=== PATIENT | female | born 1950 | race Asian ===

== ENCOUNTER 2020-04-19 17:41 | Inpatient (IN) | payer MEDICARE, MEDICAID ==
[~2020-04-19] VITALS: Ht 157.5 cm; Wt 61.2 kg
[2020-04-19 18:31] LABS: BASOPHILS % (AUTO) 0.5 % (0.0-2.0); HEMATOCRIT 37.2 % (37.0-47.0); HEMOGLOBIN 13.1 G/DL (12.0-16.0); LYMPHOCYTES % (AUTO) 22.1 % (20.0-45.0); MEAN CORPUSCULAR VOLUME 87 FL (80-99); MONOCYTES % (AUTO) 6.1 % (1.0-10.0); NEUTROPHILS % (AUTO) 71.3 % (45.0-75.0); PLATELET COUNT 240 K/UL (150-450); RED BLOOD COUNT 4.26 M/UL (4.20-5.40); WHITE BLOOD COUNT 6.9 K/UL (4.8-10.8)
[2020-04-19 18:39] LABS: CALCIUM 8.1 MG/DL (8.5-10.1); CREATININE 1.1 MG/DL (0.55-1.30); POTASSIUM 3.2 MMOL/L (3.5-5.1)
[2020-04-19 18:45] VITALS: BP 131/92
[2020-04-19 18:55] LABS: ALBUMIN/GLOBULIN RATIO 0.7 (1.0-2.7); BILIRUBIN,TOTAL 0.5 MG/DL (0.2-1.0)
[2020-04-19 20:50] VITALS: BP 149/87
--- NOTE | 2020-04-19 20:57 | History & Physical ---
History of Present Illness General Date patient seen: Apr 19, 2020 Time patient seen: 20:57 Reason for Hospitalization: Dyspnea/Respdistress Present Illness HPI 69 yoF with non significant medical hx, presented to ED for 3 days hx of worsening SOB, dyspnea, and cough, Pt was bourght in by EMS with 6L and sat at 90% Denied any CP, vomtiting, diarrhea, or fever prior Allergies: Coded Allergies: No Known Allergies (Unverified , 04/19/20) COVID-19 Screening Contact w/high risk pt: No Experienced COVID-19 symptoms?: No Medication History No Active Prescriptions or Reported Meds Patient History Healthcare decision maker Resuscitation status Advanced Directive on File Review of Systems Review of Symptoms General ROS: tiredness Psychological ROS: no depression or mood changes, no memory loss Ophthalmic ROS: no visual changes or eye irritation ENT ROS: no nasal congestion, hearing loss, dizziness Allergy and Immunology ROS: no allergic symptoms or urticaria Hematological and Lymphatic ROS: no swollen glands, unusual bleeding or bruising Endocrine ROS: no polyuria, polydipsia, weight changes, temperature intolerance Respiratory ROS: no cough, shortness of breath, or wheezing Cardiovascular ROS: no chest pain or dyspnea on exertion Gastrointestinal ROS: denies abdominal pain, bright red blood in stool. Musculoskeletal ROS: no myalgias or arthralgias Neurological ROS: no TIA or stroke symptoms Dermatological ROS: no new or changing skin lesions, rashes or pruritis Physical Exam Physical Exam General appearance: alert, cooperative, no distress, appears stated age Head: Normocephalic, without obvious abnormality, atraumatic Eyes: conjunctivae/corneas clear. PERRL, EOM's intact. Fundi benign Throat: Lips, mucosa, and tongue normal. Teeth and gums normal Neck: supple, symmetrical, trachea midline, no adenopathy, thyroid: not enlarged, symmetric, no tenderness/mass/nodules, no carotid bruit and no JVD Lungs: clear to auscultation bilaterally Heart: regular rate and rhythm, S1, S2 normal, no murmur, click, rub or gallop Abdomen: soft, non-tender. Bowel sounds normal. No masses, no organomegaly Extremities: extremities normal, atraumatic, no cyanosis or edema Pulses: 2+ and symmetric Skin: Skin color, texture, turgor normal. No rashes or lesions Neurologic: Grossly normal Last 24 Hour Vital Signs Date Time Temp Pulse Resp B/P (MAP) Pulse Ox O2 Delivery O2 Flow Rate FiO2 04/19/20 20:50 98.5 78 24 149/87 96 Nasal Cannula 6.0 04/19/20 18:51 76 18 Nasal Cannula 6.0 04/19/20 18:45 97.0 18 131/92 92 Room Air 04/19/20 17:35 97.0 76 18 131/92 (105) 92 Room Air Laboratory Tests Test 04/19/20 18:12 White Blood Count 6.9 K/UL (4.8-10.8) Red Blood Count 4.26 M/UL (4.20-5.40) Hemoglobin 13.1 G/DL (12.0-16.0) Hematocrit 37.2 % (37.0-47.0) Mean Corpuscular Volume 87 FL (80-99) Mean Corpuscular Hemoglobin 30.7 PG (27.0-31.0) Mean Corpuscular Hemoglobin Concent 35.2 G/DL (32.0-36.0) Red Cell Distribution Width 12.0 % (11.6-14.8) Platelet Count 240 K/UL (150-450) Mean Platelet Volume 6.8 FL (6.5-10.1) Neutrophils (%) (Auto) 71.3 % (45.0-75.0) Lymphocytes (%) (Auto) 22.1 % (20.0-45.0) Monocytes (%) (Auto) 6.1 % (1.0-10.0) Eosinophils (%) (Auto) 0.0 % (0.0-3.0) Basophils (%) (Auto) 0.5 % (0.0-2.0) Prothrombin Time 10.7 SEC (9.30-11.50) Prothromb Time International Ratio 1.0 (0.9-1.1) Activated Partial Thromboplast Time 34 SEC (23-33) H Sodium Level 135 MMOL/L (136-145) L Potassium Level 3.2 MMOL/L (3.5-5.1) L Chloride Level 100 MMOL/L (98-107) Carbon Dioxide Level 27 MMOL/L (21-32) Anion Gap 8 mmol/L (5-15) Blood Urea Nitrogen 16 mg/dL (7-18) Creatinine 1.1 MG/DL (0.55-1.30) Estimat Glomerular Filtration Rate 49.6 mL/min (>60) Glucose Level 109 MG/DL (74-106) H Calcium Level 8.1 MG/DL (8.5-10.1) L Ferritin 835 NG/ML (8-388) H Total Bilirubin 0.5 MG/DL (0.2-1.0) Aspartate Amino Transf (AST/SGOT) 60 U/L (15-37) H Alanine Aminotransferase (ALT/SGPT) 59 U/L (12-78) Alkaline Phosphatase 28 U/L (46-116) L Lactate Dehydrogenase 423 U/L (81-234) H C-Reactive Protein, Quantitative 7.3 mg/dL (0.00-0.90) H Pro-B-Type Natriuretic Peptide 98 pg/mL (0-125) Total Protein 7.5 G/DL (6.4-8.2) Albumin 3.0 G/DL (3.4-5.0) L Globulin 4.5 g/dL Albumin/Globulin Ratio 0.7 (1.0-2.7) L Lipase 311 U/L (73-393) Microbiology Date/Time Source Procedure Growth Status 04/19/20 18:12 Nasopharynx SARS-CoV-2 RdRp Gene Assay - Final Complete Height (Feet): 5 Height (Inches): 2.00 Weight (Pounds): 135 Assessment/Plan Status: stable, unchanged Diagnosis [place] I: 69 yo F with no PMHX admitted for covid PNA # acute resp failure 2/2 Covid pna # covid pna # High infllammatory marker # Hypokalemia - albuterol mdi - decadron start - nc - zinc - self pron - Pulm consulted, appreciate recs - replete lyte DVT loveno GI not indicated [facility] Hospital declaration X INPATIENT level of care is warranted for this patient because patient is a 89 year old with who presents with suspicion of . I have a high level of concern because . Patient is at high risk for . Plan of care/treatment include . Patient care is expected to be greater than 2 midnights. Disposition: Once the patient is stable to leave the hospital, I anticipate the patient will likely be discharged to the following environment: Estimated discharge date:- I spent 70 minutes on this patient's case, and 30 minutes was dedicated to counseling and/or care coordination. MIPS (Merit-based Incentive Payment System) Applicable CPT: 53939, 42373 CHECK ALL THAT ARE MET: Measure #5 (CHF): All ages. Prescribe SALO/ARB upon discharge for patients with left ventricular systolic dysfunction. If not, the reason is clearly documented in the medical chart. Measure #8 (CHF): All ages. Prescribe a beta ashly upon discharge for patients with left ventricular systolic dysfunction. If not, the reason is clearly documented in the medical chart. X Measure #47 Advance care plan or surrogate decision maker documented in the medical record. XMeasure #130 The provider has documented, updated, or reviewed the patients current medication list and has documented it in the patients note. X Measure #374 (All): Send report to referring provider. Measure #407(Sepsis due to MSSA bacteremia): Age 18+ Patient treated with a beta-lactam antibiotic (Nafcillin, Oxacillin or Cefazolin) as definitive therapy. MEDICAL COMPLEXITY High complexity medical decision making (need 2/3 categories) Problem - need 4 points X Acute/new problem with new plan for workup (4 points, 1 max) Acute/new problem without additional workup (3 points, 1 max) Unstable chronic problem actively being managed (2 point each, 2 max) X Stable chronic problem actively being managed (1 point each, 2 max) Self-limited/transient process (constipation, muscle ache, etc) (1 point each, 2 max) Data - need 4 points X Reviewed labs/imaging studies (1 points, 2 max) X Independent review of imaging (EKG, xrays, etc) (2 points, 2 max) Discussed case with consult/other MD/RN (2 points, 2 max) High Risk - qualify if have one of the following: Severe exacerbation of acute problem, acute mental status change, IV narcotics, monitoring drug levels (vancomycin, INR, tacrolimus etc) Chika Rose D.O. Apr 19, 2020 20:57
[2020-04-19] MEDS ORDERED: Nitroglycerin Subl 0.4mg tab SL PRN (21:00)
[2020-04-19 21:20] VITALS: BP 138/76
[2020-04-19 21:50] LABS: CHOLESTEROL 187 MG/DL (< 200); HDL CHOLESTEROL 52 MG/DL (40-60); TRIGLYCERIDES 138 MG/DL (30-150)
--- NOTE | 2020-04-19 22:05 | Emergency Room Report ---
History of Present Illness General Chief Complaint: Dyspnea/Respdistress Source: Patient Present Illness HPI 69-year-old female recently diagnosed with Covid presents with fatigue, shortness of breath for days alleviated with oxygen, severity is moderate, constant patient brought in by EMS currently on 6 L of nasal cannula Allergies: Coded Allergies: No Known Allergies (Unverified , 04/19/20) COVID-19 Screening Contact w/high risk pt: No Experienced COVID-19 symptoms?: No COVID-19 Testing performed VP DIRECTOR OF FINANCE: Yes COVID-19 Screening: Positive COVID-19 COVID-19 Testing Source: UNK Patient History Past Medical History: see triage record Reviewed Nursing Documentation: PMH: Agreed; PSxH: Agreed Nursing Documentation-PMH Past Medical History: No History, Except For Review of Systems All Other Systems: negative except mentioned in HPI Physical Exam Vital Signs Date Time Temp Pulse Resp B/P (MAP) Pulse Ox O2 Delivery O2 Flow Rate FiO2 04/19/20 17:35 97.0 76 18 131/92 (105) 92 Room Air 04/19/20 18:51 6.0 Sp02 EP Interpretation: reviewed, abnormal - Hypoxic General Appearance: alert, moderate distress, Chronically Ill Head: normocephalic, atraumatic Eyes: bilateral eye PERRL, bilateral eye EOMI ENT: uvula midline, moist mucus membranes Neck: supple, thyroid normal, supple/symm/no masses Respiratory: respiratory distress, decreased breath sounds, accessory muscle use Cardiovascular #1: normal peripheral pulses, no edema, no gallop, no murmur, tachycardia Gastrointestinal: non tender, soft, no guarding, no rebound Musculoskeletal: normal inspection Neurologic: alert, oriented x3 Psychiatric: anxious Skin: no rash, warm/dry Procedures Critical Care Time Critical Care Time Given the critical condition in which the patient arrived, the patient was immediately assessed by myself and the nurse, and cardiac monitoring initiated due to the potential for rapid decompensation of the patient's clinical condition. During the course of the patient's stay, I spent a considerable amount of time at the bedside performing serial re-evaluations of the patient's hemodynamic and clinical status because of the recognized potential threat to life or limb in this condition. I then had a chance to review not only all of the available current laboratory and radiographic studies obtained today, but I also reviewed old records available to me at the time. Additionally, any ancillary information available including dictaphone transcriber records were reviewed. Sequential vital signs were obtained. Critical Care time of 33 minutes was performed exclusive of billable procedures. Medical Decision Making Diagnostic Impression: Primary Impression: Respiratory distress Additional Impressions: COVID-19 Hypoxic ER Course 69-year-old female presents with Covid currently short of breath, requiring oxygenation, patient given 6 L nasal cannula, patient was in critical status, tachypneic short of breath improved with oxygenation, Decadron administration patient admitted to Dr. Ac Laboratory Tests Test 04/19/20 18:12 White Blood Count 6.9 K/UL (4.8-10.8) Red Blood Count 4.26 M/UL (4.20-5.40) Hemoglobin 13.1 G/DL (12.0-16.0) Hematocrit 37.2 % (37.0-47.0) Mean Corpuscular Volume 87 FL (80-99) Mean Corpuscular Hemoglobin 30.7 PG (27.0-31.0) Mean Corpuscular Hemoglobin Concent 35.2 G/DL (32.0-36.0) Red Cell Distribution Width 12.0 % (11.6-14.8) Platelet Count 240 K/UL (150-450) Mean Platelet Volume 6.8 FL (6.5-10.1) Neutrophils (%) (Auto) 71.3 % (45.0-75.0) Lymphocytes (%) (Auto) 22.1 % (20.0-45.0) Monocytes (%) (Auto) 6.1 % (1.0-10.0) Eosinophils (%) (Auto) 0.0 % (0.0-3.0) Basophils (%) (Auto) 0.5 % (0.0-2.0) Prothrombin Time 10.7 SEC (9.30-11.50) Prothrombin Time INR 1.0 (0.9-1.1) Activated Partial Thromboplast Time 34 SEC (23-33) H Sodium Level 135 MMOL/L (136-145) L Potassium Level 3.2 MMOL/L (3.5-5.1) L Chloride Level 100 MMOL/L (98-107) Carbon Dioxide Level 27 MMOL/L (21-32) Anion Gap 8 mmol/L (5-15) Blood Urea Nitrogen 16 mg/dL (7-18) Creatinine 1.1 MG/DL (0.55-1.30) Estimated Glomerular Filtration Rate 49.6 mL/min (>60) Glucose Level 109 MG/DL (74-106) H Calcium Level 8.1 MG/DL (8.5-10.1) L Magnesium Level 2.4 MG/DL (1.8-2.4) Ferritin 835 NG/ML (8-388) H Total Bilirubin 0.5 MG/DL (0.2-1.0) Aspartate Amino Transferase (AST) 60 U/L (15-37) H Alanine Aminotransferase (ALT) 59 U/L (12-78) Alkaline Phosphatase 28 U/L (46-116) L Lactate Dehydrogenase 423 U/L (81-234) H C-Reactive Protein, Quantitative 7.3 mg/dL (0.00-0.90) H Pro-B-Type Natriuretic Peptide 98 pg/mL (0-125) Total Protein 7.5 G/DL (6.4-8.2) Albumin 3.0 G/DL (3.4-5.0) L Globulin 4.5 g/dL Albumin/Globulin Ratio 0.7 (1.0-2.7) L Triglycerides Level 138 MG/DL (30-150) Cholesterol Level 187 MG/DL (< 200) LDL Cholesterol 108 mg/dL (<100) H HDL Cholesterol 52 MG/DL (40-60) Cholesterol/HDL Ratio 3.6 (3.3-4.4) Lipase 311 U/L (73-393) Microbiology Date/Time Source Procedure Growth Status 04/19/20 18:12 Nasopharynx SARS-CoV-2 RdRp Gene Assay - Final Complete EKG Diagnostic Results Troponin ordered: No EKG Time: 18:04 EP Interpretation: NSR, rate 70, QTc 457, no acute ST elevations, normal axis Rhythm Strip Diag. Results Rhythm Strip Time: 18:10 EP Interpretation: yes Rate: 82 Rhythm: NSR, no PVC's, no ectopy Chest X-Ray Diagnostic Results Chest X-Ray Diagnostic Results : Chest X-Ray Ordered: Yes # of Views/Limited/Complete: 1 View Indication: Shortness of Breath EP Interpretation: Yes Interpretation: no consolidation, no effusion, no pneumothorax, no acute cardiopulmonary disease Impression: No acute disease Electronically Signed by: Eliseo Dailey MD Last Vital Signs Date Time Temp Pulse Resp B/P (MAP) Pulse Ox O2 Delivery O2 Flow Rate FiO2 04/19/20 20:50 98.5 78 24 149/87 96 Nasal Cannula 6.0 Disposition: ADMITTED INPATIENT Condition: Critical Referrals: NOT CHOSEN IPA/,REFERRING (PCP) Eliseo Dailey MD Apr 19, 2020 22:05
[2020-04-19] MEDS: Enoxaparin 40mg Inj SUBQ SCH (23:15)
[2020-04-20] VITALS: BP 133/74
[2020-04-20 04:00] VITALS: BP 117/72
[2020-04-20 07:13] LABS: HEMATOCRIT 39.4 % (37.0-47.0); HEMOGLOBIN 13.3 G/DL (12.0-16.0); MEAN CORPUSCULAR VOLUME 91 FL (80-99); PLATELET COUNT 239 K/UL (150-450); RED BLOOD COUNT 4.35 M/UL (4.20-5.40); RED CELL DISTRIBUTION WIDTH 12.1 % (11.6-14.8); WHITE BLOOD COUNT 6.6 K/UL (4.8-10.8)
[2020-04-20 08:00] VITALS: BP_SYST 111; BP_SYST 119; BP_DIAS 75; BP_DIAS 85
[2020-04-20] MEDS ORDERED: Albuterol 90mcg Inhaler 8gm INH PRN (11:15)
--- NOTE | 2020-04-20 11:17 | Consultation ---
History of Present Illness General Date patient seen: Apr 20, 2020 Time patient seen: 10:00 Chief Complaint: Dyspnea/Respdistress Referring physician: Dr Cabello Reason for Consultation: COVID PNA, hypoxia Present Illness HPI 69 years old female with past medical history of hypertension, recently diagnosed with Covid infection, presented to emergency department complaining of shortness of breath and fatigue . Symptoms reposted as moderate in severity , constant in duration , and were gradually getting worse. Patient was brought by paramedics. Patient was placed on supplemental oxygen 6 L via nasal cannula by paramedics. Upon evaluation pulse oximetry was 92% on 6 L of oxygen via nasal cannula. Laboratory work-up revealed no leukocytosis , stable hemoglobin ,hematocrit and platelet count. Potassium 3.2. BUN 16, creatinine 1.1. Magnesium 2.4. Repeated COVID-19 in emergency department was positive. CRP 7.3, ferritin 835, LDH 423, Troponin negative, EKG revealed sinus rhythm no acute ischemic changes. Chest x-ray revealed no acute cardiopulmonary pathology In emergency department patient received fluids, started on steroids and admitted for further management. Pulmonology consult was assist requested to assist in management of this patient. Allergies: Coded Allergies: No Known Allergies (Unverified , 04/19/20) Medication History No Active Prescriptions or Reported Meds Patient History Healthcare decision maker Resuscitation status Full code Advanced Directive on File Review of Systems Constitutional: Reports: weakness, other - fatigue Eye: Reports: no symptoms ENT: Reports: no symptoms Respiratory: Reports: see HPI Cardiovascular: Reports: other - hx of HTN Gastrointestinal: Reports: no symptoms Genitourinary: Reports: no symptoms Musculoskeletal: Reports: other - myalgia Skin: Reports: no symptoms Psychiatric: Reports: no symptoms Neurological: Reports: no symptoms Endocrine: Reports: no symptoms Hematologic/Lymphatic: Reports: no symptoms Physical Exam General Appearance: WD/WN, no apparent distress Lines, tubes and drains: peripheral HEENT: normocephalic, atraumatic, anicteric, mucous membranes moist, PERRL, other - O2 3 L via NC Neck: non-tender, supple Respiratory/Chest: lungs clear - with moderate air exchange , no respiratory distress, no accessory muscle use Cardiovascular/Chest: normal peripheral pulses, normal rate Abdomen: normal bowel sounds, non tender, soft Extremities: normal range of motion, no calf tenderness, normal capillary refill Skin Exam: warm/dry Neurologic: no motor/sensory deficits, alert, responsive Musculoskeletal: normal muscle bulk Last 24 Hour Vital Signs Date Time Temp Pulse Resp B/P (MAP) Pulse Ox O2 Delivery O2 Flow Rate FiO2 04/20/20 04:00 98.8 68 22 117/72 (87) 94 04/20/20 00:28 Nasal Cannula 3.0 04/20/20 00:00 99.2 82 21 133/74 (93) 96 04/19/20 23:01 Nasal Cannula 3.0 04/19/20 21:20 99.5 80 20 138/76 (96) 96 04/19/20 21:05 98.2 83 19 142/82 96 Nasal Cannula 6.0 04/19/20 20:50 98.5 78 24 149/87 96 Nasal Cannula 6.0 04/19/20 18:51 76 18 Nasal Cannula 6.0 04/19/20 18:45 97.0 18 131/92 92 Room Air 04/19/20 17:35 97.0 76 18 131/92 (105) 92 Room Air Intake and Output 04/19/20 04/20/20 19:00 07:00 Intake Total 240 ml Balance 240 ml Intake Oral 240 ml # Voids 4 Laboratory Tests Test 04/19/20 18:12 04/20/20 05:00 White Blood Count 6.9 K/UL (4.8-10.8) 6.6 K/UL (4.8-10.8) Red Blood Count 4.26 M/UL (4.20-5.40) 4.35 M/UL (4.20-5.40) Hemoglobin 13.1 G/DL (12.0-16.0) 13.3 G/DL (12.0-16.0) Hematocrit 37.2 % (37.0-47.0) 39.4 % (37.0-47.0) Mean Corpuscular Volume 87 FL (80-99) 91 FL (80-99) Mean Corpuscular Hemoglobin 30.7 PG (27.0-31.0) 30.7 PG (27.0-31.0) Mean Corpuscular Hemoglobin Concent 35.2 G/DL (32.0-36.0) 33.8 G/DL (32.0-36.0) Red Cell Distribution Width 12.0 % (11.6-14.8) 12.1 % (11.6-14.8) Platelet Count 240 K/UL (150-450) 239 K/UL (150-450) Mean Platelet Volume 6.8 FL (6.5-10.1) 7.0 FL (6.5-10.1) Neutrophils (%) (Auto) 71.3 % (45.0-75.0) % (45.0-75.0) Lymphocytes (%) (Auto) 22.1 % (20.0-45.0) % (20.0-45.0) Monocytes (%) (Auto) 6.1 % (1.0-10.0) % (1.0-10.0) Eosinophils (%) (Auto) 0.0 % (0.0-3.0) % (0.0-3.0) Basophils (%) (Auto) 0.5 % (0.0-2.0) % (0.0-2.0) Prothrombin Time 10.7 SEC (9.30-11.50) Prothromb Time International Ratio 1.0 (0.9-1.1) Activated Partial Thromboplast Time 34 SEC (23-33) H Sodium Level 135 MMOL/L (136-145) L Potassium Level 3.2 MMOL/L (3.5-5.1) L Chloride Level 100 MMOL/L (98-107) Carbon Dioxide Level 27 MMOL/L (21-32) Anion Gap 8 mmol/L (5-15) Blood Urea Nitrogen 16 mg/dL (7-18) Creatinine 1.1 MG/DL (0.55-1.30) Estimat Glomerular Filtration Rate 49.6 mL/min (>60) Glucose Level 109 MG/DL (74-106) H Calcium Level 8.1 MG/DL (8.5-10.1) L Magnesium Level 2.4 MG/DL (1.8-2.4) Ferritin 835 NG/ML (8-388) H Total Bilirubin 0.5 MG/DL (0.2-1.0) Aspartate Amino Transf (AST/SGOT) 60 U/L (15-37) H Alanine Aminotransferase (ALT/SGPT) 59 U/L (12-78) Alkaline Phosphatase 28 U/L (46-116) L Lactate Dehydrogenase 423 U/L (81-234) H C-Reactive Protein, Quantitative 7.3 mg/dL (0.00-0.90) H Pro-B-Type Natriuretic Peptide 98 pg/mL (0-125) Total Protein 7.5 G/DL (6.4-8.2) Albumin 3.0 G/DL (3.4-5.0) L Globulin 4.5 g/dL Albumin/Globulin Ratio 0.7 (1.0-2.7) L Triglycerides Level 138 MG/DL (30-150) Cholesterol Level 187 MG/DL (< 200) LDL Cholesterol 108 mg/dL (<100) H HDL Cholesterol 52 MG/DL (40-60) Cholesterol/HDL Ratio 3.6 (3.3-4.4) Lipase 311 U/L (73-393) Differential Total Cells Counted 100 Neutrophils % (Manual) 93 % (45-75) H Lymphocytes % (Manual) 4 % (20-45) L Monocytes % (Manual) 3 % (1-10) Eosinophils % (Manual) 0 % (0-3) Basophils % (Manual) 0 % (0-2) Band Neutrophils 0 % (0-8) Platelet Estimate Adequate Platelet Morphology Normal Red Blood Cell Morphology Normal Microbiology Date/Time Source Procedure Growth Status 04/19/20 18:12 Nasopharynx SARS-CoV-2 RdRp Gene Assay - Final Complete Height (Feet): 5 Height (Inches): 2.00 Weight (Pounds): 135 Medications Current Medications Medications (Trade) Dose Ordered Sig/Abeba Route PRN Reason Start Time Stop Time Status Last Admin Dose Admin Dexamethasone Sodium Phosphate (Decadron 4mg/ml vial) 6 mg Q24H IVP 04/19/20 22:00 04/28/20 23:59 04/19/20 23:14 Dextrose (Dextrose 50%) 25 ml Q30M PRN IV Hypoglycemia 04/19/20 21:00 07/18/20 20:59 Dextrose (Dextrose 50%) 50 ml Q30M PRN IV Hypoglycemia 04/19/20 21:00 07/18/20 20:59 Diphenhydramine HCl (Benadryl) 25 mg Q6H PRN ORAL Itching/Pruritis 04/19/20 21:00 05/19/20 20:59 Enoxaparin Sodium (Lovenox) 40 mg QHS SUBQ 04/19/20 22:00 07/18/20 21:59 04/19/20 23:15 Nitroglycerin (Ntg) 0.4 mg Q5M X 3 DOSES PRN SL Prn Chest Pain 04/19/20 21:00 05/19/20 20:59 Ondansetron HCl (Zofran) 4 mg Q6H PRN IVP Nausea & Vomiting 04/19/20 21:00 05/19/20 20:59 Assessment/Plan Assessment/Plan: ASSESSMENT COVID 19 infection Acute hypoxic rep failure 2/2 to COVID infection Hypokalemia Hx of HTN PLAN OF CARE MS floor isolation O2 titrate to keep sat above 92% Albuterol MDI prn started on steroids hold Remdesivivr for now, monitor response to steroids fup with inflammatory markers fup with imaging check D dimer a/c with Lovenox ( PPX dose) replace K, check K in am supportive care case discussed and evaluated by supervising physician Shira Chambers NP Apr 20, 2020 11:16
[2020-04-20 12:00] VITALS: BP 123/78
[2020-04-20] MEDS ORDERED: Acetaminophen 500mg (ES) tab ORAL PRN (12:45)
--- NOTE | 2020-04-20 13:12 | General Progress Note ---
Subjective Date patient seen: Apr 20, 2020 Time patient seen: 13:12 Allergies: Coded Allergies: No Known Allergies (Unverified , 04/19/20) Subjective Patient is doing well on 3L NC; c/o mild 7/10 pain. Vitals stable. Educated her on proning. Objective Last 24 Hour Vital Signs Date Time Temp Pulse Resp B/P (MAP) Pulse Ox O2 Delivery O2 Flow Rate FiO2 04/20/20 12:00 97.9 69 19 123/78 (93) 96 04/20/20 09:00 Nasal Cannula 3.0 04/20/20 08:00 97.6 73 18 111/75 (87) 96 04/20/20 04:00 98.8 68 22 117/72 (87) 94 04/20/20 00:28 Nasal Cannula 3.0 04/20/20 00:00 99.2 82 21 133/74 (93) 96 04/19/20 23:01 Nasal Cannula 3.0 04/19/20 21:20 99.5 80 20 138/76 (96) 96 04/19/20 21:05 98.2 83 19 142/82 96 Nasal Cannula 6.0 04/19/20 20:50 98.5 78 24 149/87 96 Nasal Cannula 6.0 04/19/20 18:51 76 18 Nasal Cannula 6.0 04/19/20 18:45 97.0 18 131/92 92 Room Air 04/19/20 17:35 97.0 76 18 131/92 (105) 92 Room Air Intake and Output 04/19/20 04/20/20 19:00 07:00 Intake Total 240 ml Balance 240 ml Intake Oral 240 ml # Voids 4 Laboratory Tests 04/19/20 18:12: White Blood Count 6.9, Red Blood Count 4.26, Hemoglobin 13.1, Hematocrit 37.2, Mean Corpuscular Volume 87, Mean Corpuscular Hemoglobin 30.7, Mean Corpuscular Hemoglobin Concent 35.2, Red Cell Distribution Width 12.0, Platelet Count 240, Mean Platelet Volume 6.8, Neutrophils (%) (Auto) 71.3, Lymphocytes (%) (Auto) 2 2.1, Monocytes (%) (Auto) 6.1, Eosinophils (%) (Auto) 0.0, Basophils (%) (Auto) 0.5, Prothrombin Time 10.7, Prothromb Time International Ratio 1.0, Activated Partial Thromboplast Time 34H, Sodium Level 135L, Potassium Level 3.2L, Chloride Level 100, Carbon Dioxide Level 27, Anion Gap 8, Blood Urea Nitrogen 16, Creatinine 1.1, Estimat Glomerular Filtration Rate 49.6, Glucose Level 109H, Calcium Level 8.1L, Magnesium Level 2.4, Ferritin 835H, Total Bilirubin 0.5, Aspartate Amino Transf (AST/SGOT) 60H, Alanine Aminotransferase (ALT/SGPT) 59, Alkaline Phosphatase 28L, Lactate Dehydrogenase 423H, C-Reactive Protein, Quantitative 7.3H, Pro-B-Type Natriuretic Peptide 98, Total Protein 7.5, Albumin 3.0L, Globulin 4.5, Albumin/Globulin Ratio 0.7L, Triglycerides Level 138, Cholesterol Level 187, LDL Cholesterol 108H, HDL Cholesterol 52, Cholesterol/HDL Ratio 3.6, Lipase 311 04/20/20 05:00: White Blood Count 6.6, Red Blood Count 4.35, Hemoglobin 13.3, Hematocrit 39.4, Mean Corpuscular Volume 91, Mean Corpuscular Hemoglobin 30.7, Mean Corpuscular Hemoglobin Concent 33.8, Red Cell Distribution Width 12.1, Platelet Count 239, Mean Platelet Volume 7.0, Neutrophils (%) (Auto) , Lymphocytes (%) (Auto) , Monocytes (%) (Auto) , Eosinophils (%) (Auto) , Basophils (%) (Auto) , Differential Total Cells Counted 100, Neutrophils % (Manual) 93H, Lymphocytes % (Manual) 4L, Monocytes % (Manual) 3, Eosinophils % (Manual) 0, Basophils % (Manual) 0, Band Neutrophils 0, Platelet Estimate Adequate, Platelet Morphology Normal, Red Blood Cell Morphology Normal 04/20/20 11:35: D-Dimer 0.70H Height (Feet): 5 Height (Inches): 2.00 Weight (Pounds): 135 General Appearance: WD/WN, no apparent distress EENT: PERRL/EOMI Cardiovascular: normal rate, regular rhythm Respiratory/Chest: normal breath sounds, no respiratory distress, no accessory muscle use Abdomen: non tender, soft Extremities: normal range of motion 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 Ac Consult ID, Dr. Kelly Van/I Holding Remdesivir and monitoring response to steroids Pandey Cx; If Procalcitonin available will order at this facility Trend Inflammatory Markers Q3 days Supportive measures/Pain control Negative fluid balance best #Hypokalemia/Electrolyte Derrangements Replete prn DVT/GI ppx Marizol Angel D.O. Apr 20, 2020 13:12
--- NOTE | 2020-04-20 14:32 | Diagnostic Imaging Report ---
Indication: Cough Technique: One view of the chest Comparison: none Findings: There are questionably small areas of peripheral streaky infiltrate at the bilateral lower lungs. The pleural spaces are clear. The heart size is upper limits of normal gastrostomy is noted Impression: Questionable bilateral infiltrates, could indicate early pneumonia. Correlate with clinical findings
[2020-04-20 16:00] VITALS: BP 112/71
--- NOTE | 2020-04-20 17:49 | Infectious Diseases Prog Note ---
Assessment/Plan Assessment/Plan Full consult dictated: A) 1) covid-19 infection with pna, ? cap, elevated neutrophils on cbc 2) hypoxia 3) pmh noted P) 1) dexamethasone and remdesivir 2) ceftriaxone and azithromycin 3) monitor hypoxia 4) will f/u 5) thank you Subjective Allergies: Coded Allergies: No Known Allergies (Unverified , 04/19/20) Objective Last 24 Hour Vital Signs Date Time Temp Pulse Resp B/P (MAP) Pulse Ox O2 Delivery O2 Flow Rate FiO2 04/20/20 16:00 97.1 60 18 112/71 (85) 96 04/20/20 13:17 97.9 04/20/20 12:00 97.9 69 19 123/78 (93) 96 04/20/20 09:00 Nasal Cannula 3.0 04/20/20 08:00 97.6 73 18 111/75 (87) 96 04/20/20 04:00 98.8 68 22 117/72 (87) 94 04/20/20 00:28 Nasal Cannula 3.0 04/20/20 00:00 99.2 82 21 133/74 (93) 96 04/19/20 23:01 Nasal Cannula 3.0 04/19/20 21:20 99.5 80 20 138/76 (96) 96 04/19/20 21:05 98.2 83 19 142/82 96 Nasal Cannula 6.0 04/19/20 20:50 98.5 78 24 149/87 96 Nasal Cannula 6.0 04/19/20 18:51 76 18 Nasal Cannula 6.0 04/19/20 18:45 97.0 18 131/92 92 Room Air Height (Feet): 5 Height (Inches): 2.00 Weight (Pounds): 135 Microbiology Date/Time Source Procedure Growth Status 04/19/20 18:12 Nasopharynx SARS-CoV-2 RdRp Gene Assay - Final Complete Laboratory Tests Test 04/19/20 18:12 04/20/20 05:00 04/20/20 11:35 White Blood Count 6.9 K/UL (4.8-10.8) 6.6 K/UL (4.8-10.8) Red Blood Count 4.26 M/UL (4.20-5.40) 4.35 M/UL (4.20-5.40) Hemoglobin 13.1 G/DL (12.0-16.0) 13.3 G/DL (12.0-16.0) Hematocrit 37.2 % (37.0-47.0) 39.4 % (37.0-47.0) Mean Corpuscular Volume 87 FL (80-99) 91 FL (80-99) Mean Corpuscular Hemoglobin 30.7 PG (27.0-31.0) 30.7 PG (27.0-31.0) Mean Corpuscular Hemoglobin Concent 35.2 G/DL (32.0-36.0) 33.8 G/DL (32.0-36.0) Red Cell Distribution Width 12.0 % (11.6-14.8) 12.1 % (11.6-14.8) Platelet Count 240 K/UL (150-450) 239 K/UL (150-450) Mean Platelet Volume 6.8 FL (6.5-10.1) 7.0 FL (6.5-10.1) Neutrophils (%) (Auto) 71.3 % (45.0-75.0) % (45.0-75.0) Lymphocytes (%) (Auto) 22.1 % (20.0-45.0) % (20.0-45.0) Monocytes (%) (Auto) 6.1 % (1.0-10.0) % (1.0-10.0) Eosinophils (%) (Auto) 0.0 % (0.0-3.0) % (0.0-3.0) Basophils (%) (Auto) 0.5 % (0.0-2.0) % (0.0-2.0) Prothrombin Time 10.7 SEC (9.30-11.50) Prothromb Time International Ratio 1.0 (0.9-1.1) Activated Partial Thromboplast Time 34 SEC (23-33) H Sodium Level 135 MMOL/L (136-145) L Potassium Level 3.2 MMOL/L (3.5-5.1) L Chloride Level 100 MMOL/L (98-107) Carbon Dioxide Level 27 MMOL/L (21-32) Anion Gap 8 mmol/L (5-15) Blood Urea Nitrogen 16 mg/dL (7-18) Creatinine 1.1 MG/DL (0.55-1.30) Estimat Glomerular Filtration Rate 49.6 mL/min (>60) Glucose Level 109 MG/DL (74-106) H Calcium Level 8.1 MG/DL (8.5-10.1) L Magnesium Level 2.4 MG/DL (1.8-2.4) Ferritin 835 NG/ML (8-388) H Total Bilirubin 0.5 MG/DL (0.2-1.0) Aspartate Amino Transf (AST/SGOT) 60 U/L (15-37) H Alanine Aminotransferase (ALT/SGPT) 59 U/L (12-78) Alkaline Phosphatase 28 U/L (46-116) L Lactate Dehydrogenase 423 U/L (81-234) H C-Reactive Protein, Quantitative 7.3 mg/dL (0.00-0.90) H Pro-B-Type Natriuretic Peptide 98 pg/mL (0-125) Total Protein 7.5 G/DL (6.4-8.2) Albumin 3.0 G/DL (3.4-5.0) L Globulin 4.5 g/dL Albumin/Globulin Ratio 0.7 (1.0-2.7) L Triglycerides Level 138 MG/DL (30-150) Cholesterol Level 187 MG/DL (< 200) LDL Cholesterol 108 mg/dL (<100) H HDL Cholesterol 52 MG/DL (40-60) Cholesterol/HDL Ratio 3.6 (3.3-4.4) Lipase 311 U/L (73-393) Differential Total Cells Counted 100 Neutrophils % (Manual) 93 % (45-75) H Lymphocytes % (Manual) 4 % (20-45) L Monocytes % (Manual) 3 % (1-10) Eosinophils % (Manual) 0 % (0-3) Basophils % (Manual) 0 % (0-2) Band Neutrophils 0 % (0-8) Platelet Estimate Adequate Platelet Morphology Normal Red Blood Cell Morphology Normal D-Dimer 0.70 mg/L FEU (0.00-0.49) H Current Medications Medications (Trade) Dose Ordered Sig/Abeba Route PRN Reason Start Time Stop Time Status Last Admin Dose Admin Acetaminophen (Tylenol) 1,000 mg Q4H PRN ORAL For Pain 04/20/20 12:45 05/20/20 12:44 04/20/20 12:47 Albuterol Sulfate (Proventil MDI) 2 puff Q4H PRN INH Shortness of Breath 04/20/20 11:15 07/19/20 11:14 Dexamethasone Sodium Phosphate (Decadron 4mg/ml vial) 6 mg Q24H IVP 04/19/20 22:00 04/28/20 23:59 04/19/20 23:14 Dextrose (Dextrose 50%) 25 ml Q30M PRN IV Hypoglycemia 04/19/20 21:00 07/18/20 20:59 Dextrose (Dextrose 50%) 50 ml Q30M PRN IV Hypoglycemia 04/19/20 21:00 07/18/20 20:59 Diphenhydramine HCl (Benadryl) 25 mg Q6H PRN ORAL Itching/Pruritis 04/19/20 21:00 05/19/20 20:59 Enoxaparin Sodium (Lovenox) 40 mg QHS SUBQ 04/19/20 22:00 07/18/20 21:59 04/19/20 23:15 Nitroglycerin (Ntg) 0.4 mg Q5M X 3 DOSES PRN SL Prn Chest Pain 04/19/20 21:00 05/19/20 20:59 Ondansetron HCl (Zofran) 4 mg Q6H PRN IVP Nausea & Vomiting 04/19/20 21:00 05/19/20 20:59 Joaquín Banuelos MD Apr 20, 2020 17:49
[2020-04-20] MEDS ORDERED: cefTRIAXone 2 GM in D5W 55 ML IVPB SCH (18:00)
--- NOTE | 2020-04-20 18:03 | Consultation ---
History of Present Illness General Date patient seen: Apr 20, 2020 Reason for Hospitalization: Dyspnea/Respdistress Present Illness HPI 69 year old female presented to [facility] ED with complaints of SOB requiring oxygen admitted for care and management noted to have abnormal lft's and discomfort, weakness, fatigue. surgery called to evaluate and assist with care. patient seen, chart reviewed patient examined. no n/v. diet okay but limited. Allergies: Coded Allergies: No Known Allergies (Unverified , 04/19/20) COVID-19 Screening Contact w/high risk pt: No Experienced COVID-19 symptoms?: Yes Coronavirus symptoms experienc: Fatigue, Shortness of Breath, Cough, Muscle or Body Aches, Sore throat Medication History No Active Prescriptions or Reported Meds Patient History History Provided By: Patient, Medical Record, PMD Healthcare decision maker Resuscitation status Advanced Directive on File Past Medical/Surgical History Past Medical/Surgical History: (1) Abnormal LFTs (2) Respiratory distress (3) Hypoxic (4) COVID-19 Review of Systems Review of Symptoms General ROS: no weight loss or fever Psychological ROS: no depression or mood changes, no memory loss Ophthalmic ROS: no visual changes or eye irritation ENT ROS: no nasal congestion, hearing loss, dizziness Allergy and Immunology ROS: no allergic symptoms or urticaria Hematological and Lymphatic ROS: no swollen glands, unusual bleeding or bruising Endocrine ROS: no polyuria, polydipsia, weight changes, temperature intolerance Respiratory ROS: no cough, shortness of breath, or wheezing Cardiovascular ROS: no chest pain or dyspnea on exertion Gastrointestinal ROS: denies abdominal pain, bright red blood in stool. Musculoskeletal ROS: no myalgias or arthralgias Neurological ROS: no TIA or stroke symptoms Dermatological ROS: no new or changing skin lesions, rashes or pruritis Physical Exam Physical Exam General appearance: alert, cooperative, no distress, appears stated age Head: Normocephalic, without obvious abnormality, atraumatic Eyes: conjunctivae/corneas clear. PERRL, EOM's intact. Fundi benign Throat: Lips, mucosa, and tongue normal. Teeth and gums normal Neck: supple, symmetrical, trachea midline, no adenopathy, thyroid: not enlarged, symmetric, no tenderness/mass/nodules, no carotid bruit and no JVD Lungs: clear to auscultation bilaterally Heart: regular rate and rhythm, S1, S2 normal, no murmur, click, rub or gallop Abdomen: soft, non-tender. Bowel sounds normal. No masses, no organomegaly Extremities: extremities normal, atraumatic, no cyanosis or edema Pulses: 2+ and symmetric Skin: Skin color, texture, turgor normal. No rashes or lesions Neurologic: Grossly normal Last 24 Hour Vital Signs Date Time Temp Pulse Resp B/P (MAP) Pulse Ox O2 Delivery O2 Flow Rate FiO2 04/20/20 16:00 97.1 60 18 112/71 (85) 96 04/20/20 13:17 97.9 04/20/20 12:00 97.9 69 19 123/78 (93) 96 04/20/20 09:00 Nasal Cannula 3.0 04/20/20 08:00 97.6 73 18 111/75 (87) 96 04/20/20 04:00 98.8 68 22 117/72 (87) 94 04/20/20 00:28 Nasal Cannula 3.0 04/20/20 00:00 99.2 82 21 133/74 (93) 96 04/19/20 23:01 Nasal Cannula 3.0 04/19/20 21:20 99.5 80 20 138/76 (96) 96 04/19/20 21:05 98.2 83 19 142/82 96 Nasal Cannula 6.0 04/19/20 20:50 98.5 78 24 149/87 96 Nasal Cannula 6.0 04/19/20 18:51 76 18 Nasal Cannula 6.0 04/19/20 18:45 97.0 18 131/92 92 Room Air Intake and Output 04/19/20 04/20/20 18:59 06:59 Intake Total 240 ml Balance 240 ml Intake Oral 240 ml # Voids 4 Laboratory Tests Test 04/19/20 18:12 04/20/20 05:00 04/20/20 11:35 White Blood Count 6.9 K/UL (4.8-10.8) 6.6 K/UL (4.8-10.8) Red Blood Count 4.26 M/UL (4.20-5.40) 4.35 M/UL (4.20-5.40) Hemoglobin 13.1 G/DL (12.0-16.0) 13.3 G/DL (12.0-16.0) Hematocrit 37.2 % (37.0-47.0) 39.4 % (37.0-47.0) Mean Corpuscular Volume 87 FL (80-99) 91 FL (80-99) Mean Corpuscular Hemoglobin 30.7 PG (27.0-31.0) 30.7 PG (27.0-31.0) Mean Corpuscular Hemoglobin Concent 35.2 G/DL (32.0-36.0) 33.8 G/DL (32.0-36.0) Red Cell Distribution Width 12.0 % (11.6-14.8) 12.1 % (11.6-14.8) Platelet Count 240 K/UL (150-450) 239 K/UL (150-450) Mean Platelet Volume 6.8 FL (6.5-10.1) 7.0 FL (6.5-10.1) Neutrophils (%) (Auto) 71.3 % (45.0-75.0) % (45.0-75.0) Lymphocytes (%) (Auto) 22.1 % (20.0-45.0) % (20.0-45.0) Monocytes (%) (Auto) 6.1 % (1.0-10.0) % (1.0-10.0) Eosinophils (%) (Auto) 0.0 % (0.0-3.0) % (0.0-3.0) Basophils (%) (Auto) 0.5 % (0.0-2.0) % (0.0-2.0) Prothrombin Time 10.7 SEC (9.30-11.50) Prothromb Time International Ratio 1.0 (0.9-1.1) Activated Partial Thromboplast Time 34 SEC (23-33) H Sodium Level 135 MMOL/L (136-145) L Potassium Level 3.2 MMOL/L (3.5-5.1) L Chloride Level 100 MMOL/L (98-107) Carbon Dioxide Level 27 MMOL/L (21-32) Anion Gap 8 mmol/L (5-15) Blood Urea Nitrogen 16 mg/dL (7-18) Creatinine 1.1 MG/DL (0.55-1.30) Estimat Glomerular Filtration Rate 49.6 mL/min (>60) Glucose Level 109 MG/DL (74-106) H Calcium Level 8.1 MG/DL (8.5-10.1) L Magnesium Level 2.4 MG/DL (1.8-2.4) Ferritin 835 NG/ML (8-388) H Total Bilirubin 0.5 MG/DL (0.2-1.0) Aspartate Amino Transf (AST/SGOT) 60 U/L (15-37) H Alanine Aminotransferase (ALT/SGPT) 59 U/L (12-78) Alkaline Phosphatase 28 U/L (46-116) L Lactate Dehydrogenase 423 U/L (81-234) H C-Reactive Protein, Quantitative 7.3 mg/dL (0.00-0.90) H Pro-B-Type Natriuretic Peptide 98 pg/mL (0-125) Total Protein 7.5 G/DL (6.4-8.2) Albumin 3.0 G/DL (3.4-5.0) L Globulin 4.5 g/dL Albumin/Globulin Ratio 0.7 (1.0-2.7) L Triglycerides Level 138 MG/DL (30-150) Cholesterol Level 187 MG/DL (< 200) LDL Cholesterol 108 mg/dL (<100) H HDL Cholesterol 52 MG/DL (40-60) Cholesterol/HDL Ratio 3.6 (3.3-4.4) Lipase 311 U/L (73-393) Differential Total Cells Counted 100 Neutrophils % (Manual) 93 % (45-75) H Lymphocytes % (Manual) 4 % (20-45) L Monocytes % (Manual) 3 % (1-10) Eosinophils % (Manual) 0 % (0-3) Basophils % (Manual) 0 % (0-2) Band Neutrophils 0 % (0-8) Platelet Estimate Adequate Platelet Morphology Normal Red Blood Cell Morphology Normal D-Dimer 0.70 mg/L FEU (0.00-0.49) H Microbiology Date/Time Source Procedure Growth Status 04/19/20 18:12 Nasopharynx SARS-CoV-2 RdRp Gene Assay - Final Complete Height (Feet): 5 Height (Inches): 2.00 Weight (Pounds): 135 Medications Current Medications Medications (Trade) Dose Ordered Sig/Abeba Route PRN Reason Start Time Stop Time Status Last Admin Dose Admin Acetaminophen (Tylenol) 1,000 mg Q4H PRN ORAL For Pain 12/30/20 12:45 05/20/20 12:44 04/20/20 12:47 Albuterol Sulfate (Proventil MDI) 2 puff Q4H PRN INH Shortness of Breath 04/20/20 11:15 07/19/20 11:14 Azithromycin (Zithromax) 500 mg DAILY ORAL 04/21/20 09:00 04/28/20 08:59 Ceftriaxone Sodium 1 gm/ Dextrose 50 ml @ 100 mls/hr Q24H IVPB 04/20/20 18:00 04/27/20 17:59 Dexamethasone Sodium Phosphate (Decadron 4mg/ml vial) 6 mg Q24H IVP 04/19/20 22:00 04/28/20 23:59 04/19/20 23:14 Dextrose (Dextrose 50%) 25 ml Q30M PRN IV Hypoglycemia 04/19/20 21:00 07/18/20 20:59 Dextrose (Dextrose 50%) 50 ml Q30M PRN IV Hypoglycemia 04/19/20 21:00 07/18/20 20:59 Diphenhydramine HCl (Benadryl) 25 mg Q6H PRN ORAL Itching/Pruritis 04/19/20 21:00 05/19/20 20:59 Enoxaparin Sodium (Lovenox) 40 mg QHS SUBQ 04/19/20 22:00 07/18/20 21:59 04/19/20 23:15 Nitroglycerin (Ntg) 0.4 mg Q5M X 3 DOSES PRN SL Prn Chest Pain 04/19/20 21:00 05/19/20 20:59 Ondansetron HCl (Zofran) 4 mg Q6H PRN IVP Nausea & Vomiting 04/19/20 21:00 05/19/20 20:59 Remdesivir 100 mg/ Sodium Chloride 250 ml @ 250 mls/hr Q24H IV 04/21/20 21:00 04/24/20 21:59 Remdesivir 200 mg/ Sodium Chloride 250 ml @ 125 mls/hr ONCE IV 04/20/20 21:00 04/20/20 22:59 Assessment/Plan Problem List: (1) Respiratory distress ICD Codes: R06.03 - Acute respiratory distress SNOMED: 391897220 (2) Hypoxic ICD Codes: R09.02 - Hypoxemia SNOMED: 478329536 (3) Abnormal LFTs Assessment & Plan: abd discomfort mild elevated lft's lip wnl no acute surgical intervention hold on US trend labs will follow with exam and recs. likely related to covid ICD Codes: R94.5 - Abnormal results of liver function studies SNOMED: 816170509 (4) COVID-19 Assessment & Plan: ++ pulm tx o2 wean d dimer elevated lovenox ICD Codes: U07.1 - COVID-19 SNOMED: 491367975 Miguel Ángel Fitzgerald Apr 20, 2020 18:03
[2020-04-20] MEDS: cefTRIAXone 1 GM in D5W 50 ML IVPB SCH (18:37)
[2020-04-20 20:00] VITALS: BP 121/69
[2020-04-20] MEDS ORDERED: Loading Dose:Remdesivir 200mg/NS 210ml IV SCH ×2 (21:00)
[2020-04-20] MEDS: Enoxaparin 40mg Inj SUBQ SCH (21:41)
[2020-04-21] VITALS: BP 111/77
--- NOTE | 2020-04-21 01:30 | Consultation ---
DATE OF CONSULTATION: 04/20/2020 INFECTIOUS DISEASES CONSULTATION CONSULTING PHYSICIAN: Joaquín Banuelos MD ATTENDING PHYSICIAN: Avni Ac MD, and Shane Cabello MD. REFERRING PHYSICIAN: Brandin Angel MD REASON FOR CONSULTATION: COVID-19 infection, possible community-acquired pneumonia and COVID pneumonia, and hypoxia. CHIEF COMPLAINT: The patient's chief complaint coming to the hospital is hypoxia and COVID infection with pneumonia, possible community-acquired pneumonia. HISTORY OF PRESENT ILLNESS: This is a very pleasant 69-year-old female who comes in to [facility]. The patient had hypoxia requiring 6 L of O2 initially. COVID nasopharyngeal molecular testing was positive. Chest x-ray shows pneumonia. The patient likely has COVID infection with pneumonia and hypoxia; however, she has elevated neutrophils in the differential and could have community-acquired pneumonia. The patient is a candidate for remdesivir and also dexamethasone. In addition, I am going to treat her with Rocephin and azithromycin to cover community-acquired pneumonia. MAR was noted. Orders were noted. Notes were reviewed. It is unclear how long she has had these symptoms, but she has mild shortness of breath and hypoxia. She is currently in COVID isolation. REVIEW OF SYSTEMS: CONSTITUTIONAL: The patient has generalized fatigue, but no focal weakness. She has no fever, chills, or night sweats. HEAD AND NECK: No head pain or neck pain. No neck stiffness. CARDIAC: No chest pain or palpitations. GASTROINTESTINAL: No nausea, vomiting, abdominal pain, or diarrhea. GENITOURINARY: No dysuria or frequency. No Chris. No CVA tenderness. PULMONARY: Mild cough. No congestion or shortness of breath. SKIN: No rash or itching. EXTREMITIES: No extremity pain. NEUROLOGIC: No seizures. No joint pain. PAST MEDICAL HISTORY: The patient has past medical history of hypertension. No history of diabetes, cancer, or cardiac disease. ALLERGIES: No known drug allergies. No antibiotic allergies. SOCIAL HISTORY: Negative for smoking, alcohol, or drug abuse. FAMILY HISTORY: Noncontributory. Negative for tuberculosis or cancer. MEDICATIONS: Upon reviewing the MAR, she is on the following medications. She is on remdesivir, azithromycin, ceftriaxone, acetaminophen, and dexamethasone. She had nitroglycerin and diphenhydramine. Outside medications noted and reconciliated. Treatment for COVID, dexamethasone and remdesivir, and antibiotics are Rocephin and azithromycin. Again, she is also on acetaminophen, albuterol, enoxaparin, IV fluids, diphenhydramine, and Zofran. Outside medications noted and reconciliated. PHYSICAL EXAMINATION: VITAL SIGNS: Temperature 97.1, pulse rate 60, respiratory rate 18, blood pressure 112/71, and saturation 96% on 3 L. She was on 6 L previously. GENERAL: Alert, responsive, in no acute distress, maybe mild shortness of breath noted. HEAD AND NECK: Oral exam, no thrush. Eye exam, no icterus. Normocephalic. Neck is supple. No JVD. HEART: Regular. No gallop or murmur. ABDOMEN: Soft. Positive bowel sounds. Nontender. LUNGS: Few bilateral rhonchi and rales. SKIN: No rash or dermatitis. MUSCULOSKELETAL: No effusions. Legs are without cellulitis. PERIPHERAL VASCULAR: No cyanosis or gangrene. GENITOURINARY: No Chris. No CVA tenderness. LINE SITES: Without phlebitis. NEUROLOGIC: Intact. Nonfocal. Alert and oriented. LABORATORY DATA: White count 6.6, hemoglobin 13.3. Creatinine 1.1. LFTs were noted. AST is mildly elevated at 60. Ferritin 835. C-reactive protein 7.3. LDH 423. Lipase normal. On the CBC, the patient has elevated neutrophils of 93%. IMAGING STUDIES: Chest x-ray shows what looks like bilateral infiltrates consistent with pneumonia; this was noted and reviewed. COVID nasopharyngeal testing was positive by molecular testing. ASSESSMENT AND PLAN: 1. COVID-19 infection with pneumonia with hypoxia requiring 6 L, now 3 L. The patient will be continued on dexamethasone, but I will add remdesivir because the patient qualifies based on low-flow oxygenation and she could get benefit from remdesivir in this situation. In addition, because of elevated neutrophils on the differential, the patient will be started on Rocephin and azithromycin to cover community-acquired pneumonia, especially in view of elevated neutrophils and possible bacterial infection. Continue dexamethasone and remdesivir for COVID-19 infection with pneumonia and hypoxia. Continue Rocephin and azithromycin for community-acquired pneumonia. Check followup chest x-ray, monitor labs, and monitor hypoxia. 2. COVID isolation. 3. Hypertension. 4. Blood pressure treatment per primary care team. 5. Continue treatment per primary consultants. 6. No known allergies. 7. Social history negative. 8. Family history noncontributory. 9. MAR was noted. 10. Case discussed with RN. Joaquín Banuelos M.D. DR: Jennifer JOB#: [id number] CC:
[2020-04-21 04:00] VITALS: BP 108/72
[2020-04-21 07:40] LABS: HEMOGLOBIN 12.3 G/DL (12.0-16.0); MEAN CORPUSCULAR VOLUME 94 FL (80-99); PLATELET COUNT 264 K/UL (150-450); RED BLOOD COUNT 4.05 M/UL (4.20-5.40); RED CELL DISTRIBUTION WIDTH 11.4 % (11.6-14.8); WHITE BLOOD COUNT 11.2 K/UL (4.8-10.8)
[2020-04-21 08:00] VITALS: BP 136/81
[2020-04-21 08:17] LABS: ALANINE AMINOTRANSFERASE 56 U/L (12-78); ALBUMIN 2.5 G/DL (3.4-5.0); ALBUMIN/GLOBULIN RATIO 0.6 (1.0-2.7); ALKALINE PHOSPHATASE 26 U/L (46-116); ANION GAP 7 mmol/L (5-15); ASPARTATE AMINO TRANSFERASE 45 U/L (15-37); BILIRUBIN,TOTAL 0.2 MG/DL (0.2-1.0); BLOOD UREA NITROGEN 16 mg/dL (7-18); CALCIUM 8.4 MG/DL (8.5-10.1); CARBON DIOXIDE 25 MMOL/L (21-32); CHLORIDE 107 MMOL/L (98-107); CREATININE 0.8 MG/DL (0.55-1.30); POTASSIUM 4.3 MMOL/L (3.5-5.1); SODIUM 139 MMOL/L (136-145)
[2020-04-21] MEDS: Azithromycin 250mg tab ORAL SCH (08:50)
--- NOTE | 2020-04-21 09:42 | Pulmonology Progress Note ---
Subjective Allergies: Coded Allergies: No Known Allergies (Unverified , 04/19/20) Subjective afebrile, mild leukocytosis no resp distress Objective Last 24 Hour Vital Signs Date Time Temp Pulse Resp B/P (MAP) Pulse Ox O2 Delivery O2 Flow Rate FiO2 04/21/20 04:00 97.0 60 17 108/72 (84) 96 04/21/20 00:00 97.3 63 17 111/77 (88) 95 04/20/20 20:46 Nasal Cannula 3.0 04/20/20 20:00 97.9 72 18 121/69 (86) 94 04/20/20 16:00 97.1 60 18 112/71 (85) 96 04/20/20 13:17 97.9 04/20/20 12:00 97.9 69 19 123/78 (93) 96 Intake and Output 04/20/20 04/21/20 19:00 07:00 Intake Total 600 ml 300 ml Balance 600 ml 300 ml Intake Oral 600 ml 300 ml # Voids 4 1 Objective General Appearance: WD/WN, no apparent distress Lines, tubes and drains: peripheral HEENT: normocephalic, atraumatic, anicteric, mucous membranes moist, PERRL, O2 3 L via NC Neck: non-tender, supple Respiratory/Chest: lungs clear - with moderate air exchange , no respiratory distress, no accessory muscle use Cardiovascular/Chest: normal peripheral pulses, normal rate Abdomen: normal bowel sounds, non tender, soft Extremities: normal range of motion, no calf tenderness, normal capillary refill Skin Exam: warm/dry Neurologic: no motor/sensory deficits, alert, responsive Musculoskeletal: normal muscle bulk Microbiology Date/Time Source Procedure Growth Status 04/19/20 18:12 Nasopharynx SARS-CoV-2 RdRp Gene Assay - Final Complete Laboratory Tests 04/20/20 11:35: D-Dimer 0.70H 04/21/20 05:30: White Blood Count 11.2#H, Red Blood Count 4.05L, Hemoglobin 12.3, Hematocrit 38.0, Mean Corpuscular Volume 94, Mean Corpuscular Hemoglobin 30.3, Mean Corpuscular Hemoglobin Concent 32.3, Red Cell Distribution Width 11.4L, Platelet Count 264, Mean Platelet Volume 6.9, Neutrophils (%) (Auto) , Lymphocytes (%) (Auto) , Monocytes (%) (Auto) , Eosinophils (%) (Auto) , Basophils (%) (Auto) , Neutrophils % (Manual) [Pending], Lymphocytes % (Manual) [Pending], Platelet Estimate [Pending], Platelet Morphology [Pending], Sodium Level 139, Potassium Level 4.3, Chloride Level 107, Carbon Dioxide Level 25, Anion Gap 7, Blood Urea Nitrogen 16, Creatinine 0.8, Estimat Glomerular Filtration Rate > 60, Glucose Level 178H, Calcium Level 8.4L, Magnesium Level 2.4, Total Bilirubin 0.2, Direct Bilirubin 0.2, Aspartate Amino Transf (AST/SGOT) 45H, Alanine Aminotransferase (ALT/SGPT) 56, Alkaline Phosphatase 26L, C-Reactive Protein, Quantitative 6.5H, Total Protein 6.9, Albumin 2.5L, Globulin 4.4, Albumin/Globulin Ratio 0.6L Current Medications Medications (Trade) Dose Ordered Sig/Abeba Route PRN Reason Start Time Stop Time Status Last Admin Dose Admin Acetaminophen (Tylenol) 1,000 mg Q4H PRN ORAL For Pain 04/20/20 12:45 05/20/20 12:44 04/20/20 12:47 Albuterol Sulfate (Proventil MDI) 2 puff Q4H PRN INH Shortness of Breath 04/20/20 11:15 07/19/20 11:14 Azithromycin (Zithromax) 500 mg DAILY ORAL 04/21/20 09:00 04/28/20 08:59 04/21/20 08:50 Ceftriaxone Sodium 1 gm/ Dextrose 50 ml @ 100 mls/hr Q24H IVPB 04/20/20 18:00 04/27/20 17:59 04/20/20 18:37 Dexamethasone Sodium Phosphate (Decadron 4mg/ml vial) 6 mg Q24H IVP 04/19/20 22:00 04/28/20 23:59 04/20/20 21:42 Dextrose (Dextrose 50%) 25 ml Q30M PRN IV Hypoglycemia 04/19/20 21:00 07/18/20 20:59 Dextrose (Dextrose 50%) 50 ml Q30M PRN IV Hypoglycemia 04/19/20 21:00 07/18/20 20:59 Diphenhydramine HCl (Benadryl) 25 mg Q6H PRN ORAL Itching/Pruritis 04/19/20 21:00 05/19/20 20:59 Enoxaparin Sodium (Lovenox) 40 mg QHS SUBQ 04/19/20 22:00 07/18/20 21:59 04/20/20 21:41 Nitroglycerin (Ntg) 0.4 mg Q5M X 3 DOSES PRN SL Prn Chest Pain 04/19/20 21:00 05/19/20 20:59 Ondansetron HCl (Zofran) 4 mg Q6H PRN IVP Nausea & Vomiting 04/19/20 21:00 05/19/20 20:59 Remdesivir 100 mg/ Sodium Chloride 250 ml @ 250 mls/hr Q24H IV 04/21/20 21:00 04/24/20 21:59 Assessment/Plan Assessment/Plan ASSESSMENT COVID 19 infection Acute hypoxic rep failure 2/2 to COVID infection Hypokalemia Hx of HTN PLAN OF CARE MS floor isolation O2 titrate to keep sat above 92% Albuterol MDI prn on steroids D 3 on Remdesivir D 2 abx per ID fup with inflammatory markers, latest CRP 6.5 fup with imaging check D dimer -0.7 a/c with Lovenox ( PPX dose) K stable after replacement supportive care case discussed and evaluated by supervising physician Shira Chambers NP Apr 21, 2020 09:42
[2020-04-21 12:00] VITALS: BP 116/80
--- NOTE | 2020-04-21 14:15 | Surgery Progress Note ---
Surgery Progress Note Subjective Symptoms: passing flatus Additional Comments c/o abd pain +nausea no emesis labs noted Objective Last 24 Hour Vital Signs Date Time Temp Pulse Resp B/P (MAP) Pulse Ox O2 Delivery O2 Flow Rate FiO2 04/21/20 12:00 97.5 63 20 116/80 (92) 95 04/21/20 09:00 Nasal Cannula 3.0 04/21/20 08:00 97.7 64 19 136/81 (99) 94 04/21/20 04:00 97.0 60 17 108/72 (84) 96 04/21/20 00:00 97.3 63 17 111/77 (88) 95 04/20/20 20:46 Nasal Cannula 3.0 04/20/20 20:00 97.9 72 18 121/69 (86) 94 04/20/20 16:00 97.1 60 18 112/71 (85) 96 I&O Intake and Output 04/20/20 04/21/20 19:00 07:00 Intake Total 600 ml 300 ml Balance 600 ml 300 ml Intake Oral 600 ml 300 ml # Voids 4 1 Cardiovascular: RSR Respiratory: clear, decreased breath sounds Abdomen: soft, non-tender, present bowel sounds, non-distended Extremities: no edema, no tenderness, no cyanosis Laboratory Tests Test 04/21/20 05:30 White Blood Count 11.2 K/UL (4.8-10.8) #H Red Blood Count 4.05 M/UL (4.20-5.40) L Hemoglobin 12.3 G/DL (12.0-16.0) Hematocrit 38.0 % (37.0-47.0) Mean Corpuscular Volume 94 FL (80-99) Mean Corpuscular Hemoglobin 30.3 PG (27.0-31.0) Mean Corpuscular Hemoglobin Concent 32.3 G/DL (32.0-36.0) Red Cell Distribution Width 11.4 % (11.6-14.8) L Platelet Count 264 K/UL (150-450) Mean Platelet Volume 6.9 FL (6.5-10.1) Neutrophils (%) (Auto) % (45.0-75.0) Lymphocytes (%) (Auto) % (20.0-45.0) Monocytes (%) (Auto) % (1.0-10.0) Eosinophils (%) (Auto) % (0.0-3.0) Basophils (%) (Auto) % (0.0-2.0) Differential Total Cells Counted 100 Neutrophils % (Manual) 88 % (45-75) H Lymphocytes % (Manual) 6 % (20-45) L Monocytes % (Manual) 6 % (1-10) Eosinophils % (Manual) 0 % (0-3) Basophils % (Manual) 0 % (0-2) Band Neutrophils 0 % (0-8) Platelet Estimate Adequate Platelet Morphology Normal Red Blood Cell Morphology Normal Sodium Level 139 MMOL/L (136-145) Potassium Level 4.3 MMOL/L (3.5-5.1) Chloride Level 107 MMOL/L (98-107) Carbon Dioxide Level 25 MMOL/L (21-32) Anion Gap 7 mmol/L (5-15) Blood Urea Nitrogen 16 mg/dL (7-18) Creatinine 0.8 MG/DL (0.55-1.30) Estimat Glomerular Filtration Rate > 60 mL/min (>60) Glucose Level 178 MG/DL (74-106) H Calcium Level 8.4 MG/DL (8.5-10.1) L Magnesium Level 2.4 MG/DL (1.8-2.4) Total Bilirubin 0.2 MG/DL (0.2-1.0) Direct Bilirubin 0.2 MG/DL (0.0-0.3) Aspartate Amino Transf (AST/SGOT) 45 U/L (15-37) H Alanine Aminotransferase (ALT/SGPT) 56 U/L (12-78) Alkaline Phosphatase 26 U/L (46-116) L C-Reactive Protein, Quantitative 6.5 mg/dL (0.00-0.90) H Total Protein 6.9 G/DL (6.4-8.2) Albumin 2.5 G/DL (3.4-5.0) L Globulin 4.4 g/dL Albumin/Globulin Ratio 0.6 (1.0-2.7) L Plan Problems: (1) Respiratory distress (2) Hypoxic (3) Abnormal LFTs Assessment & Plan: abd discomfort mild elevated lft's lip wnl no acute surgical intervention hold on US trend labs will follow with exam and recs. likely related to covid kub ordered (4) COVID-19 Assessment & Plan: ++ pulm tx o2 wean d dimer elevated lovenox Miguel Ángel Fitzgerald Apr 21, 2020 14:15
[2020-04-21 16:00] VITALS: BP 116/74
--- NOTE | 2020-04-21 17:51 | General Progress Note ---
Subjective Date patient seen: Apr 21, 2020 Allergies: Coded Allergies: No Known Allergies (Unverified , 04/19/20) Subjective I spent an additional 32 minutes reviewing medical records including prior hospitalization notes, clinic notes, consultation notes, prior labs, and prior imaging.. Patient admitted for Covid pneumonia with possible superimposed CAP. On Dex and remdesivir. Doing much better. Intermittently on oxygen. 2 to 3 L nasal cannula. Feels fatigued but otherwise stable. Leg Man used. Review of systems: Constitutional: Denies: chills, diaphoresis, fever, malaise, weakness, + Fatigue HEENT: Denies: eye pain, blurred vision, double vision, ear pain, nose pain, throat pain, Cardiovascular: Denies: chest pain, edema, lightheadedness, palpitations Respiratory: Endorses Cough and SOB Gastrointestinal/Abdominal: Denies: abdominal pain, black stools, blood in stool, constipation, diarrhea, nausea, poor fluid intake vomiting, other Genitourinary: Denies: burning, discharge, frequency, Neurologic/Psychiatric: Denies: headache, numbness, paresthesia, new weakness, other Endocrine: Denies: excessive sweating, flushing, intolerance to cold, MSK: denies joint pains, swelling, stiffness Hematologic/Lymphatic: Denies: anemia, easy bleeding, easy bruising, Psych: no anxiety, depression, SI or HI Objective Last 24 Hour Vital Signs Date Time Temp Pulse Resp B/P (MAP) Pulse Ox O2 Delivery O2 Flow Rate FiO2 04/21/20 12:00 97.5 63 20 116/80 (92) 95 04/21/20 09:00 Nasal Cannula 3.0 04/21/20 08:00 97.7 64 19 136/81 (99) 94 04/21/20 04:00 97.0 60 17 108/72 (84) 96 04/21/20 00:00 97.3 63 17 111/77 (88) 95 04/20/20 20:46 Nasal Cannula 3.0 04/20/20 20:00 97.9 72 18 121/69 (86) 94 Intake and Output 04/20/20 04/21/20 19:00 07:00 Intake Total 600 ml 300 ml Balance 600 ml 300 ml Intake Oral 600 ml 300 ml # Voids 4 1 Laboratory Tests 04/21/20 05:30: White Blood Count 11.2#H, Red Blood Count 4.05L, Hemoglobin 12.3, Hematocrit 38.0, Mean Corpuscular Volume 94, Mean Corpuscular Hemoglobin 30.3, Mean Corpuscular Hemoglobin Concent 32.3, Red Cell Distribution Width 11.4L, Platelet Count 264, Mean Platelet Volume 6.9, Neutrophils (%) (Auto) , Lymphocytes (%) (Auto) , Monocytes (%) (Auto) , Eosinophils (%) (Auto) , Basophils (%) (Auto) , Differential Total Cells Counted 100, Neutrophils % (Manual) 88H, Lymphocytes % (Manual) 6L, Monocytes % (Manual) 6, Eosinophils % (Manual) 0, Basophils % (Manual) 0, Band Neutrophils 0, Platelet Estimate Adequate, Platelet Morphology Normal, Red Blood Cell Morphology Normal, Sodium Level 139, Potassium Level 4.3, Chloride Level 107, Carbon Dioxide Level 25, Anion Gap 7, Blood Urea Nitrogen 16, Creatinine 0.8, Estimat Glomerular Filtration Rate > 60, Glucose Level 178H, Calcium Level 8.4L, Magnesium Level 2.4, Total Bilirubin 0.2, Direct Bilirubin 0.2, Aspartate Amino Transf (AST/SGOT) 45H, Alanine Aminotransferase (ALT/SGPT) 56, Alkaline Phosphatase 26L, C-Reactive Protein, Quantitative 6.5H, Total Protein 6.9, Albumin 2.5L, Globulin 4.4, Albumin/Globulin Ratio 0.6L Height (Feet): 5 Height (Inches): 2.00 Weight (Pounds): 135 Objective General: WDWN female in NAD, A&O x 4 HEENT: Normocephalic cephalic atraumatic, pupils equal round reactive to light and accommodation, nares patent and no symmetrical, no tonsillar exudates, mucous membranes moist CV: Regular rate regular rhythm, no murmurs, rubs, or gallops Pulm: Lungs clear to auscultation bilaterally. No wheezes, rhonchi, or rales GI: Soft, nontender, nondistended, bowel sounds present Neuro: CN 2-12 intact bilaterally, no focal signs. Ext: No lower extremity edema bilaterally Skin: no rashes lesions or ulcers Msk: Joints symmetrical in upper extremity and lower extremity bilaterally, no joint swelling. Lymph: No lymphadenopathy in upper extremity and lower extremity Assessment/Plan Status: stable, unchanged Assessment/Plan: 69 yo F w/o relevant PMH admitted for Covid and Acute Hypoxic Resp Failure: Assessment/Plan #Acute Hypoxic Resp Failure 2/2 COVID #COVID PNA w/ associated High Inflammatory Markers #?Superimposed CAP -Appreciate Pulm, Dr. Ac -Consult ID, Dr. Mendoza -Decadron/MDI (04/20 - ) -Remdesivir (04/20 - ) - Rocephin (04/20 - ) - Azithromycin (04/20 - ) - Abx per ID - Appreciate ID recommendations: Alk[place]ooles -Pandey Cx; pending -Trend Inflammatory Markers -Supportive measures/Pain control -Negative fluid balance best #Hypokalemia/Electrolyte Derrangements -Replete prn FENPPX DVTPPX: - lovenox Fluids: PRN Diet: yes Lines: PIV PT/OT: pending Code status: Full Dispo: home when off oxygen Reason for Continued Hospitalization: hypoxic resp failure MIPS (Merit-based Incentive Payment System) Applicable CPT: 99354, 08038 CHECK ALL THAT ARE MET: [] Measure #5 (CHF): All ages. Prescribe SALO/ARB upon discharge for patients with left ventricular systolic dysfunction. If not, the reason is clearly documented in the medical chart [] Measure #8 (CHF): All ages. Prescribe a beta ashly upon discharge for patients with left ventricular systolic dysfunction. If not, the reason is clearly documented in the medical chart. [] Measure #47: Advance care plan or surrogate decision maker documented in the medical record. [x] Measure #130 The provider has documented, updated, or reviewed the therese he current medication list and has documented it in the patients note. [x] Measure #374 (All): Send report to referring provider. [] Measure #407(Sepsis due to MSSA bacteremia): Age 18+ Patient treated with a beta-lactam antibiotic (Nafcillin, Oxacillin or Cefazolin) as definitive therapy. MEDICAL COMPLEXITYHigh complexity medical decision making (need 2/3 categories)Problem - need 4 points [x]Acute/new problem with new plan for workup (4 points, 1 max) [] Acute/new problem without additional workup (3 points, 1 max) [x] Unstable chronic problem actively being managed (2 point each, 2 max) [x] Stable chronic problem actively being managed (1 point each, 2 max) [] Self-limited/transient process (constipation, muscle ache, etc) (1 point each , 2 max) Data - need 4 points [x] Reviewed labs/imaging studies (1 points, 2 max) [x] Independent review of imaging (EKG, xrays, etc) (2 points, 2 max) [x] Discussed case with consult/other MD/RN (2 points, 2 max) High Risk - qualify if have one of the following: [x] Severe exacerbation of acute problem, acute mental status change, IV narcotics, monitoring drug levels (vancomycin, INR, tacrolimus etc) I spent 36 minutes on this patient's case, and 20 mins was dedicated to counseling and/or care coordination. Discussed with yovany, ROB, Rn Time of note may not reflect time of encounter Jose Miguel Yao D.O. Apr 21, 2020 17:50
[2020-04-21] MEDS: cefTRIAXone 1 GM in D5W 50 ML IVPB SCH (18:02)
[2020-04-21 20:00] VITALS: BP 116/76
[2020-04-21] MEDS: Maintenance Dose:Remdesivir 100mg/NS 230ml x 4 Doses IV SCH ×2 (21:07)
[2020-04-21] MEDS: Enoxaparin 40mg Inj SUBQ SCH (21:17)
[2020-04-22] VITALS: BP 121/75
[2020-04-22 04:00] VITALS: BP 112/75
[2020-04-22 07:13] LABS: BASOPHILS % (AUTO) 0.2 % (0.0-2.0); HEMATOCRIT 36.1 % (37.0-47.0); HEMOGLOBIN 11.8 G/DL (12.0-16.0); LYMPHOCYTES % (AUTO) 10.7 % (20.0-45.0); MEAN CORPUSCULAR VOLUME 96 FL (80-99); MONOCYTES % (AUTO) 4.7 % (1.0-10.0); NEUTROPHILS % (AUTO) 84.4 % (45.0-75.0); PLATELET COUNT 276 K/UL (150-450); RED BLOOD COUNT 3.77 M/UL (4.20-5.40); RED CELL DISTRIBUTION WIDTH 12.1 % (11.6-14.8); WHITE BLOOD COUNT 7.9 K/UL (4.8-10.8)
[2020-04-22 07:40] LABS: ALANINE AMINOTRANSFERASE 61 U/L (12-78); ALBUMIN 2.4 G/DL (3.4-5.0); ALBUMIN/GLOBULIN RATIO 0.6 (1.0-2.7); ALKALINE PHOSPHATASE 28 U/L (46-116); ANION GAP 6 mmol/L (5-15); ASPARTATE AMINO TRANSFERASE 40 U/L (15-37); BILIRUBIN,DIRECT 0.2 MG/DL (0.0-0.3); BILIRUBIN,TOTAL 0.2 MG/DL (0.2-1.0); BLOOD UREA NITROGEN 19 mg/dL (7-18); CALCIUM 8.4 MG/DL (8.5-10.1); CARBON DIOXIDE 26 MMOL/L (21-32); CHLORIDE 106 MMOL/L (98-107); CREATININE 0.9 MG/DL (0.55-1.30); POTASSIUM 4.3 MMOL/L (3.5-5.1); SODIUM 138 MMOL/L (136-145)
[2020-04-22 08:00] VITALS: BP 113/79
[2020-04-22] MEDS: Azithromycin 250mg tab ORAL SCH (09:35)
[2020-04-22 12:00] VITALS: BP 107/68
--- NOTE | 2020-04-22 12:37 | Pulmonology Progress Note ---
Subjective Allergies: Coded Allergies: No Known Allergies (Unverified , 04/19/20) Subjective afebrile, mild leukocytosis from yesterday resolved no resp distress remains on 3 L O2 via NC Objective Last 24 Hour Vital Signs Date Time Temp Pulse Resp B/P (MAP) Pulse Ox O2 Delivery O2 Flow Rate FiO2 04/22/20 09:00 Nasal Cannula 3.0 04/22/20 08:00 97.8 63 17 113/79 (90) 95 04/22/20 04:00 98.1 57 16 112/75 (87) 96 04/22/20 00:00 97.4 62 16 121/75 (90) 92 04/21/20 20:04 Nasal Cannula 3.0 04/21/20 20:00 98.1 61 16 116/76 (89) 97 04/21/20 16:00 98.1 66 19 116/74 (88) 94 Intake and Output 04/21/20 04/22/20 19:00 07:00 Intake Total 500 ml Balance 500 ml Intake Oral 500 ml # Voids 1 2 Objective General Appearance: WD/WN, no apparent distress Lines, tubes and drains: peripheral HEENT: normocephalic, atraumatic, anicteric, mucous membranes moist, PERRL, O2 3 L via NC Neck: non-tender, supple Respiratory/Chest: lungs clear - with moderate air exchange , no respiratory distress, no accessory muscle use Cardiovascular/Chest: normal peripheral pulses, normal rate Abdomen: normal bowel sounds, non tender, soft Extremities: normal range of motion, no calf tenderness, normal capillary refill Skin Exam: warm/dry Neurologic: no motor/sensory deficits, alert, responsive Musculoskeletal: normal muscle bulk Microbiology Date/Time Source Procedure Growth Status 04/19/20 18:15 Blood Blood Culture - Preliminary NO GROWTH AFTER 48 HOURS Resulted 04/19/20 18:12 Nasopharynx SARS-CoV-2 RdRp Gene Assay - Final Complete 04/19/20 18:00 Blood Blood Culture - Preliminary NO GROWTH AFTER 48 HOURS Resulted Laboratory Tests 04/22/20 05:30: White Blood Count 7.9, Red Blood Count 3.77L, Hemoglobin 11.8L, Hematocrit 36.1L , Mean Corpuscular Volume 96, Mean Corpuscular Hemoglobin 31.2H, Mean Corpuscular Hemoglobin Concent 32.6, Red Cell Distribution Width 12.1, Platelet Count 276, Mean Platelet Volume 7.2, Neutrophils (%) (Auto) 84.4H, Lymphocytes (%) (Auto) 10.7L, Monocytes (%) (Auto) 4.7, Eosinophils (%) (Auto) 0.0, Basophils (%) (Auto) 0.2, Sodium Level 138, Potassium Level 4.3, Chloride Level 106, Carbon Dioxide Level 26, Anion Gap 6, Blood Urea Nitrogen 19H, Creatinine 0.9, Estimat Glomerular Filtration Rate > 60, Glucose Level 185H, Calcium Level 8.4L, Total Bilirubin 0.2, Direct Bilirubin 0.2, Aspartate Amino Transf (AST/SGOT) 40H, Alanine Aminotransferase (ALT/SGPT) 61, Alkaline Phosphatase 28L , Total Protein 6.5, Albumin 2.4L, Globulin 4.1, Albumin/Globulin Ratio 0.6L Current Medications Medications (Trade) Dose Ordered Sig/Abeba Route PRN Reason Start Time Stop Time Status Last Admin Dose Admin Acetaminophen (Tylenol) 1,000 mg Q4H PRN ORAL For Pain 04/20/20 12:45 05/20/20 12:44 04/20/20 12:47 Albuterol Sulfate (Proventil MDI) 2 puff Q4H PRN INH Shortness of Breath 04/20/20 11:15 07/19/20 11:14 Azithromycin (Zithromax) 500 mg DAILY ORAL 04/21/20 09:00 04/28/20 08:59 04/22/20 09:35 Ceftriaxone Sodium 1 gm/ Dextrose 50 ml @ 100 mls/hr Q24H IVPB 04/20/20 18:00 04/27/20 17:59 04/21/20 18:02 Dexamethasone Sodium Phosphate (Decadron 4mg/ml vial) 6 mg Q24H IVP 04/19/20 22:00 04/28/20 23:59 04/21/20 21:07 Dextrose (Dextrose 50%) 25 ml Q30M PRN IV Hypoglycemia 04/19/20 21:00 07/18/20 20:59 Dextrose (Dextrose 50%) 50 ml Q30M PRN IV Hypoglycemia 04/19/20 21:00 07/18/20 20:59 Diphenhydramine HCl (Benadryl) 25 mg Q6H PRN ORAL Itching/Pruritis 04/19/20 21:00 05/19/20 20:59 Enoxaparin Sodium (Lovenox) 40 mg QHS SUBQ 04/19/20 22:00 07/18/20 21:59 04/21/20 21:17 Nitroglycerin (Ntg) 0.4 mg Q5M X 3 DOSES PRN SL Prn Chest Pain 04/19/20 21:00 05/19/20 20:59 Ondansetron HCl (Zofran) 4 mg Q6H PRN IVP Nausea & Vomiting 04/19/20 21:00 05/19/20 20:59 Remdesivir 100 mg/ Sodium Chloride 250 ml @ 250 mls/hr Q24H IV 04/21/20 21:00 04/24/20 21:59 04/21/20 21:07 Assessment/Plan Assessment/Plan ASSESSMENT COVID 19 infection Acute hypoxic rep failure 2/2 to COVID infection Hypokalemia Hx of HTN PLAN OF CARE MS floor isolation O2 titrate to keep sat above 92% Albuterol MDI prn on steroids D 4 on Remdesivir D 3 abx per ID fup with inflammatory markers, latest CRP 6.5 fup with imaging , CXR done this am, image not uploaded yet check D dimer -0.7 a/c with Lovenox ( PPX dose) K stable after replacement supportive care case discussed and evaluated by supervising physician Shira Chambers NP Apr 22, 2020 12:37 Avni Ac MD Apr 22, 2020 20:38
--- NOTE | 2020-04-22 13:38 | Surgery Progress Note ---
Surgery Progress Note Subjective Additional Comments labs improved abd pain resolving no n/v still respiratory discomfort but improving wants to go home Objective Last 24 Hour Vital Signs Date Time Temp Pulse Resp B/P (MAP) Pulse Ox O2 Delivery O2 Flow Rate FiO2 04/22/20 12:00 97.5 62 19 107/68 (81) 94 04/22/20 09:00 Nasal Cannula 3.0 04/22/20 08:00 97.8 63 17 113/79 (90) 95 04/22/20 04:00 98.1 57 16 112/75 (87) 96 04/22/20 00:00 97.4 62 16 121/75 (90) 92 04/21/20 20:04 Nasal Cannula 3.0 04/21/20 20:00 98.1 61 16 116/76 (89) 97 04/21/20 16:00 98.1 66 19 116/74 (88) 94 I&O Intake and Output 04/21/20 04/22/20 19:00 07:00 Intake Total 500 ml Balance 500 ml Intake Oral 500 ml # Voids 1 2 Cardiovascular: RSR Respiratory: clear, decreased breath sounds Abdomen: soft, non-tender, present bowel sounds, non-distended Extremities: no edema, no tenderness, no cyanosis Laboratory Tests Test 04/22/20 05:30 White Blood Count 7.9 K/UL (4.8-10.8) Red Blood Count 3.77 M/UL (4.20-5.40) L Hemoglobin 11.8 G/DL (12.0-16.0) L Hematocrit 36.1 % (37.0-47.0) L Mean Corpuscular Volume 96 FL (80-99) Mean Corpuscular Hemoglobin 31.2 PG (27.0-31.0) H Mean Corpuscular Hemoglobin Concent 32.6 G/DL (32.0-36.0) Red Cell Distribution Width 12.1 % (11.6-14.8) Platelet Count 276 K/UL (150-450) Mean Platelet Volume 7.2 FL (6.5-10.1) Neutrophils (%) (Auto) 84.4 % (45.0-75.0) H Lymphocytes (%) (Auto) 10.7 % (20.0-45.0) L Monocytes (%) (Auto) 4.7 % (1.0-10.0) Eosinophils (%) (Auto) 0.0 % (0.0-3.0) Basophils (%) (Auto) 0.2 % (0.0-2.0) Sodium Level 138 MMOL/L (136-145) Potassium Level 4.3 MMOL/L (3.5-5.1) Chloride Level 106 MMOL/L (98-107) Carbon Dioxide Level 26 MMOL/L (21-32) Anion Gap 6 mmol/L (5-15) Blood Urea Nitrogen 19 mg/dL (7-18) H Creatinine 0.9 MG/DL (0.55-1.30) Estimat Glomerular Filtration Rate > 60 mL/min (>60) Glucose Level 185 MG/DL (74-106) H Calcium Level 8.4 MG/DL (8.5-10.1) L Total Bilirubin 0.2 MG/DL (0.2-1.0) Direct Bilirubin 0.2 MG/DL (0.0-0.3) Aspartate Amino Transf (AST/SGOT) 40 U/L (15-37) H Alanine Aminotransferase (ALT/SGPT) 61 U/L (12-78) Alkaline Phosphatase 28 U/L (46-116) L Total Protein 6.5 G/DL (6.4-8.2) Albumin 2.4 G/DL (3.4-5.0) L Globulin 4.1 g/dL Albumin/Globulin Ratio 0.6 (1.0-2.7) L Plan Problems: (1) Respiratory distress (2) Hypoxic (3) Abnormal LFTs Assessment & Plan: abd discomfort mild elevated lft's lip wnl no acute surgical intervention hold on US trend labs will follow with exam and recs. likely related to covid kub ordered (4) COVID-19 Assessment & Plan: ++ pulm tx o2 wean d dimer elevated arielnox Miguel Ángel Fitzgerald Apr 22, 2020 13:38
--- NOTE | 2020-04-22 13:51 | Diagnostic Imaging Report ---
EXAM: XR Chest, 1 View CLINICAL HISTORY: INFECT TECHNIQUE: Frontal view of the chest. COMPARISON: Chest x-rays dated 04/19/20 FINDINGS: Lungs: Mildly increased interstitial markings and subtle hazy densities. The lungs are otherwise clear without focal consolidation. Pleural space: Unremarkable. The costophrenic angles are sharp. No visible pneumothorax. Heart: Unremarkable. No cardiomegaly. Mediastinum: Unremarkable. Bones/joints: Unremarkable. IMPRESSION: Mildly increased interstitial markings and subtle hazy densities. This is concerning for an evolving pneumonitis. No focal consolidation.
--- NOTE | 2020-04-22 13:54 | Diagnostic Imaging Report ---
EXAM: XR Abdomen, 2 Views CLINICAL HISTORY: ABD PAIN TECHNIQUE: Frontal view of the abdomen/pelvis with upright view of the abdomen. COMPARISON: No relevant prior studies available. FINDINGS: Intraperitoneal space: No free air. Gastrointestinal tract: Unremarkable bowel gas pattern. No abnormal distention of large or small bowel loops. No luminal air fluid levels. No evidence of pneumatosis intestinalis. Bones/joints: Unremarkable. IMPRESSION: Unremarkable abdominal x-rays.
[2020-04-22 16:00] VITALS: BP 124/76
--- NOTE | 2020-04-22 17:05 | Infectious Diseases Prog Note ---
Assessment/Plan Assessment/Plan ASSESSMENT AND PLAN: 1.covid-19 infection, ? CAP, hypoxia - dexamethasone, remdesivir - ceftriaxone and azithromycin - monitor hypoxia, labs and chest x-ray - seems clinically stable currently 2. COVID isolation. 3. Hypertension. 4. Blood pressure treatment per primary care team. 5. Continue treatment per primary consultants. 6. No known allergies. 7. Social history negative. 8. Family history noncontributory. 9. MAR was noted. 10. Case discussed with RN. Subjective Constitutional: Reports: fatigue; Denies: fever HEENT: Reports: congestion - less Respiratory: Reports: shortness of breath - less Cardiovascular: Denies: chest pain Gastrointestinal/Abdominal: Denies: nausea, vomiting, diarrhea Genitourinary: Reports: other - no ponce Neurologic: Denies: headache Psychiatric: Denies: depression Skin: Denies: rash Musculoskeletal: Denies: pain Allergies: Coded Allergies: No Known Allergies (Unverified , 04/19/20) Objective Last 24 Hour Vital Signs Date Time Temp Pulse Resp B/P (MAP) Pulse Ox O2 Delivery O2 Flow Rate FiO2 04/22/20 16:00 97.8 66 19 124/76 (92) 96 04/22/20 12:00 97.5 62 19 107/68 (81) 94 04/22/20 09:00 Nasal Cannula 3.0 04/22/20 08:00 97.8 63 17 113/79 (90) 95 04/22/20 04:00 98.1 57 16 112/75 (87) 96 04/22/20 00:00 97.4 62 16 121/75 (90) 92 04/21/20 20:04 Nasal Cannula 3.0 04/21/20 20:00 98.1 61 16 116/76 (89) 97 Height (Feet): 5 Height (Inches): 2.00 Weight (Pounds): 135 General Appearance: no acute distress HEENT: normocephalic, atraumatic, anicteric Respiratory/Chest: crackles/rales, rhonchi - bilaterally Cardiovascular: normal rate, regular rhythm, no gallop/murmur Abdomen: normal bowel sounds, soft, non tender, no organomegaly, non distended Genitourinary: other - no ponce Extremities: no cyanosis Skin: no rash 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 The lungs are otherwise clear without focal consolidation. Pleural space: Unremarkable. The costophrenic angles are sharp. No visible pneumothorax. Heart: Unremarkable. No cardiomegaly. Mediastinum: Unremarkable. Bones/joints: Unremarkable. IMPRESSION: Mildly increased interstitial markings and subtle hazy densities. This is concerning for an evolving pneumonitis. No focal consolidation. Microbiology Date/Time Source Procedure Growth Status 04/19/20 18:15 Blood Blood Culture - Preliminary NO GROWTH AFTER 48 HOURS Resulted 04/19/20 18:12 Nasopharynx SARS-CoV-2 RdRp Gene Assay - Final Complete 04/19/20 18:00 Blood Blood Culture - Preliminary NO GROWTH AFTER 48 HOURS Resulted Laboratory Tests Test 04/22/20 05:30 White Blood Count 7.9 K/UL (4.8-10.8) Red Blood Count 3.77 M/UL (4.20-5.40) L Hemoglobin 11.8 G/DL (12.0-16.0) L Hematocrit 36.1 % (37.0-47.0) L Mean Corpuscular Volume 96 FL (80-99) Mean Corpuscular Hemoglobin 31.2 PG (27.0-31.0) H Mean Corpuscular Hemoglobin Concent 32.6 G/DL (32.0-36.0) Red Cell Distribution Width 12.1 % (11.6-14.8) Platelet Count 276 K/UL (150-450) Mean Platelet Volume 7.2 FL (6.5-10.1) Neutrophils (%) (Auto) 84.4 % (45.0-75.0) H Lymphocytes (%) (Auto) 10.7 % (20.0-45.0) L Monocytes (%) (Auto) 4.7 % (1.0-10.0) Eosinophils (%) (Auto) 0.0 % (0.0-3.0) Basophils (%) (Auto) 0.2 % (0.0-2.0) Sodium Level 138 MMOL/L (136-145) Potassium Level 4.3 MMOL/L (3.5-5.1) Chloride Level 106 MMOL/L (98-107) Carbon Dioxide Level 26 MMOL/L (21-32) Anion Gap 6 mmol/L (5-15) Blood Urea Nitrogen 19 mg/dL (7-18) H Creatinine 0.9 MG/DL (0.55-1.30) Estimat Glomerular Filtration Rate > 60 mL/min (>60) Glucose Level 185 MG/DL (74-106) H Calcium Level 8.4 MG/DL (8.5-10.1) L Total Bilirubin 0.2 MG/DL (0.2-1.0) Direct Bilirubin 0.2 MG/DL (0.0-0.3) Aspartate Amino Transf (AST/SGOT) 40 U/L (15-37) H Alanine Aminotransferase (ALT/SGPT) 61 U/L (12-78) Alkaline Phosphatase 28 U/L (46-116) L Total Protein 6.5 G/DL (6.4-8.2) Albumin 2.4 G/DL (3.4-5.0) L Globulin 4.1 g/dL Albumin/Globulin Ratio 0.6 (1.0-2.7) L Current Medications Medications (Trade) Dose Ordered Sig/Abeba Route PRN Reason Start Time Stop Time Status Last Admin Dose Admin Acetaminophen (Tylenol) 1,000 mg Q4H PRN ORAL For Pain 04/20/20 12:45 05/20/20 12:44 04/20/20 12:47 Albuterol Sulfate (Proventil MDI) 2 puff Q4H PRN INH Shortness of Breath 04/20/20 11:15 07/19/20 11:14 Azithromycin (Zithromax) 500 mg DAILY ORAL 04/21/20 09:00 04/28/20 08:59 04/22/20 09:35 Ceftriaxone Sodium 1 gm/ Dextrose 50 ml @ 100 mls/hr Q24H IVPB 04/20/20 18:00 04/27/20 17:59 04/21/20 18:02 Dexamethasone Sodium Phosphate (Decadron 4mg/ml vial) 6 mg Q24H IVP 04/19/20 22:00 04/28/20 23:59 04/21/20 21:07 Dextrose (Dextrose 50%) 25 ml Q30M PRN IV Hypoglycemia 04/19/20 21:00 07/18/20 20:59 Dextrose (Dextrose 50%) 50 ml Q30M PRN IV Hypoglycemia 04/19/20 21:00 07/18/20 20:59 Diphenhydramine HCl (Benadryl) 25 mg Q6H PRN ORAL Itching/Pruritis 04/19/20 21:00 05/19/20 20:59 Enoxaparin Sodium (Lovenox) 40 mg QHS SUBQ 04/19/20 22:00 07/18/20 21:59 04/21/20 21:17 Nitroglycerin (Ntg) 0.4 mg Q5M X 3 DOSES PRN SL Prn Chest Pain 04/19/20 21:00 05/19/20 20:59 Ondansetron HCl (Zofran) 4 mg Q6H PRN IVP Nausea & Vomiting 04/19/20 21:00 05/19/20 20:59 Remdesivir 100 mg/ Sodium Chloride 250 ml @ 250 mls/hr Q24H IV 04/21/20 21:00 04/24/20 21:59 04/21/20 21:07 Joaquín Banuelos MD Apr 22, 2020 17:04
[2020-04-22] MEDS: cefTRIAXone 1 GM in D5W 50 ML IVPB SCH (17:11)
--- NOTE | 2020-04-22 18:41 | General Progress Note ---
Subjective Date patient seen: Apr 22, 2020 Allergies: Coded Allergies: No Known Allergies (Unverified , 04/19/20) Subjective No acute events overnight per nursing. Doing much better. Continues to be Intermittently on oxygen. 2 to 3 L nasal cannula. Feels fatigued but otherwise stable. 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 Review of systems: Constitutional: Denies: chills, diaphoresis, fever, malaise, weakness, + Fatigue HEENT: Denies: eye pain, blurred vision, double vision, ear pain, nose pain, throat pain, Cardiovascular: Denies: chest pain, edema, lightheadedness, palpitations Respiratory: Endorses Cough and SOB Gastrointestinal/Abdominal: Denies: abdominal pain, black stools, blood in stool, constipation, diarrhea, nausea, poor fluid intake vomiting, other Genitourinary: Denies: burning, discharge, frequency, Neurologic/Psychiatric: Denies: headache, numbness, paresthesia, new weakness, other Endocrine: Denies: excessive sweating, flushing, intolerance to cold, MSK: denies joint pains, swelling, stiffness Hematologic/Lymphatic: Denies: anemia, easy bleeding, easy bruising, Psych: no anxiety, depression, SI or HI Objective Last 24 Hour Vital Signs Date Time Temp Pulse Resp B/P (MAP) Pulse Ox O2 Delivery O2 Flow Rate FiO2 04/22/20 16:00 97.8 66 19 124/76 (92) 96 04/22/20 12:00 97.5 62 19 107/68 (81) 94 04/22/20 09:00 Nasal Cannula 3.0 04/22/20 08:00 97.8 63 17 113/79 (90) 95 04/22/20 04:00 98.1 57 16 112/75 (87) 96 04/22/20 00:00 97.4 62 16 121/75 (90) 92 04/21/20 20:04 Nasal Cannula 3.0 04/21/20 20:00 98.1 61 16 116/76 (89) 97 Intake and Output 04/21/20 04/22/20 19:00 07:00 Intake Total 500 ml Balance 500 ml Intake Oral 500 ml # Voids 1 2 Laboratory Tests 04/22/20 05:30: White Blood Count 7.9, Red Blood Count 3.77L, Hemoglobin 11.8L, Hematocrit 36.1L , Mean Corpuscular Volume 96, Mean Corpuscular Hemoglobin 31.2H, Mean Corpuscular Hemoglobin Concent 32.6, Red Cell Distribution Width 12.1, Platelet Count 276, Mean Platelet Volume 7.2, Neutrophils (%) (Auto) 84.4H, Lymphocytes (%) (Auto) 10.7L, Monocytes (%) (Auto) 4.7, Eosinophils (%) (Auto) 0.0, Basophils (%) (Auto) 0.2, Sodium Level 138, Potassium Level 4.3, Chloride Level 106, Carbon Dioxide Level 26, Anion Gap 6, Blood Urea Nitrogen 19H, Creatinine 0.9, Estimat Glomerular Filtration Rate > 60, Glucose Level 185H, Calcium Level 8.4L, Total Bilirubin 0.2, Direct Bilirubin 0.2, Aspartate Amino Transf (AST/SGOT) 40H, Alanine Aminotransferase (ALT/SGPT) 61, Alkaline Phosphatase 28L , Total Protein 6.5, Albumin 2.4L, Globulin 4.1, Albumin/Globulin Ratio 0.6L Height (Feet): 5 Height (Inches): 2.00 Weight (Pounds): 135 Objective General: WDWN female in NAD, A&O x 4 HEENT: Normocephalic cephalic atraumatic, pupils equal round reactive to light and accommodation, nares patent and no symmetrical, no tonsillar exudates, mucous membranes moist CV: Regular rate regular rhythm, no murmurs, rubs, or gallops Pulm: Lungs clear to auscultation bilaterally. No wheezes, rhonchi, or rales GI: Soft, nontender, nondistended, bowel sounds present Neuro: CN 2-12 intact bilaterally, no focal signs. Ext: No lower extremity edema bilaterally Skin: no rashes lesions or ulcers Msk: Joints symmetrical in upper extremity and lower extremity bilaterally, no joint swelling. Lymph: No lymphadenopathy in upper extremity and lower extremity Assessment/Plan Status: stable, unchanged Assessment/Plan: 69 yo F w/o relevant PMH admitted for Covid and Acute Hypoxic Resp Failure: Assessment/Plan #Acute Hypoxic Resp Failure 2/2 COVID #COVID PNA w/ associated High Inflammatory Markers #?Superimposed CAP -Appreciate Pulm, Dr. Ac. D/w -Consult ID, Dr. Mendoza -Carlota/MDI (04/20 - ) -Remdesivir (04/20 - ) - Rocephin (04/20 - ) - Azithromycin (04/20 - ) - Abx per ID - Appreciate ID recommendations: Alk[place]ooles -Pandey Cx; pending -Trend Inflammatory Markers -Supportive measures/Pain control -Negative fluid balance best - wean off oxygen #Hypokalemia/Electrolyte Derrangements -Replete prn FENPPX DVTPPX: - lovenox Fluids: PRN Diet: yes Lines: PIV PT/OT: pending Code status: Full Dispo: home when off oxygen Reason for Continued Hospitalization: hypoxic resp failure MIPS ([employer]-based Incentive Payment System) Applicable CPT: 49522, 86509 CHECK ALL THAT ARE MET: [] Measure #5 (CHF): All ages. Prescribe SALO/ARB upon discharge for patients with left ventricular systolic dysfunction. If not, the reason is clearly documented in the medical chart [] Measure #8 (CHF): All ages. Prescribe a beta ashly upon discharge for patients with left ventricular systolic dysfunction. If not, the reason is clearly documented in the medical chart. [] Measure #47: Advance care plan or surrogate decision maker documented in the medical record. [x] Measure #130 The provider has documented, updated, or reviewed the patients current medication list and has documented it in the patients note. [x] Measure #374 (All): Send report to referring provider. [] Measure #407(Sepsis due to MSSA bacteremia): Age 18+ Patient treated with a beta-lactam antibiotic (Nafcillin, Oxacillin or Cefazolin) as definitive therapy. MEDICAL COMPLEXITYHigh complexity medical decision making (need 2/3 categories)Problem - need 4 points [x]Acute/new problem with new plan for workup (4 points, 1 max) [] Acute/new problem without additional workup (3 points, 1 max) [x] Unstable chronic problem actively being managed (2 point each, 2 max) [x] Stable chronic problem actively being managed (1 point each, 2 max) [] Self-limited/transient process (constipation, muscle ache, etc) (1 point each, 2 max) Data - need 4 points [x] Reviewed labs/imaging studies (1 points, 2 max) [x] Independent review of imaging (EKG, xrays, etc) (2 points, 2 max) [x] Discussed case with consult/other MD/RN (2 points, 2 max) High Risk - qualify if have one of the following: [x] Severe exacerbation of acute problem, acute mental status change, IV narcotics, monitoring drug levels (vancomycin, INR, tacrolimus etc) I spent 38 minutes on this patient's case, and 22 mins was dedicated to counseling and/or care coordination. Discussed with pulm, ID, Rn Time of note may not reflect time of encounter Jose Miguel Yao D.O. Apr 22, 2020 18:41
[2020-04-22 20:00] VITALS: BP 139/90
[2020-04-22] MEDS: Enoxaparin 40mg Inj SUBQ SCH (21:06)
[2020-04-22] MEDS: Maintenance Dose:Remdesivir 100mg/NS 230ml x 4 Doses IV SCH ×2 (21:06)
[2020-04-23] VITALS: BP 127/84
[2020-04-23 04:00] VITALS: BP 112/76
[2020-04-23 08:00] VITALS: BP 114/78
[2020-04-23 08:01] LABS: ALANINE AMINOTRANSFERASE 66 U/L (12-78); ALBUMIN 2.5 G/DL (3.4-5.0); ALBUMIN/GLOBULIN RATIO 0.6 (1.0-2.7); ALKALINE PHOSPHATASE 28 U/L (46-116); ANION GAP 8 mmol/L (5-15); ASPARTATE AMINO TRANSFERASE 33 U/L (15-37); BILIRUBIN,DIRECT < 0.1 MG/DL (0.0-0.3); BILIRUBIN,TOTAL 0.2 MG/DL (0.2-1.0); BLOOD UREA NITROGEN 20 mg/dL (7-18); CALCIUM 8.7 MG/DL (8.5-10.1); CARBON DIOXIDE 26 MMOL/L (21-32); CHLORIDE 105 MMOL/L (98-107); CREATININE 0.9 MG/DL (0.55-1.30); PHOSPHORUS 4.2 MG/DL (2.5-4.9); POTASSIUM 4.2 MMOL/L (3.5-5.1); SODIUM 139 MMOL/L (136-145)
[2020-04-23 08:10] LABS: BASOPHILS % (AUTO) 0.1 % (0.0-2.0); HEMATOCRIT 37.1 % (37.0-47.0); HEMOGLOBIN 12.1 G/DL (12.0-16.0); MEAN CORPUSCULAR VOLUME 96 FL (80-99); NEUTROPHILS % (AUTO) 79.8 % (45.0-75.0); PLATELET COUNT 301 K/UL (150-450); RED BLOOD COUNT 3.86 M/UL (4.20-5.40); RED CELL DISTRIBUTION WIDTH 12.3 % (11.6-14.8); WHITE BLOOD COUNT 5.7 K/UL (4.8-10.8)
[2020-04-23] MEDS: Azithromycin 250mg tab ORAL SCH (08:28)
--- NOTE | 2020-04-23 10:13 | Pulmonology Progress Note ---
Subjective Constitutional: Reports: fatigue; Denies: fever Gastrointestinal/Abdominal: Denies: nausea, vomiting, diarrhea Psychiatric: Denies: depression Skin: Denies: rash Musculoskeletal: Denies: pain Allergies: Coded Allergies: No Known Allergies (Unverified , 04/19/20) Subjective afebrile, no leukocytosis no resp distress remains on 3 L O2 via NC chest discomfort with deep breathing , but no SOB , no CP Objective Last 24 Hour Vital Signs Date Time Temp Pulse Resp B/P (MAP) Pulse Ox O2 Delivery O2 Flow Rate FiO2 04/23/20 09:00 Nasal Cannula 3.0 04/23/20 08:00 97.6 61 18 114/78 (90) 97 04/23/20 04:00 97.5 59 19 112/76 (88) 95 04/23/20 00:00 97.5 66 19 127/84 (98) 94 04/22/20 21:00 Nasal Cannula 3.0 04/22/20 20:00 97.7 60 19 139/90 (106) 94 04/22/20 16:00 97.8 66 19 124/76 (92) 96 04/22/20 12:00 97.5 62 19 107/68 (81) 94 Intake and Output 04/22/20 04/23/20 19:00 07:00 Intake Total 600 ml 490 ml Balance 600 ml 490 ml Intake Oral 600 ml 240 ml IV Total 250 ml # Voids 3 2 Objective General Appearance: WD/WN, no apparent distress Lines, tubes and drains: peripheral HEENT: normocephalic, atraumatic, anicteric, mucous membranes moist, PERRL, O2 3 L via NC Neck: non-tender, supple Respiratory/Chest: lungs clear - with moderate air exchange , no respiratory distress, no accessory muscle use Cardiovascular/Chest: normal peripheral pulses, normal rate Abdomen: normal bowel sounds, non tender, soft Extremities: normal range of motion, no calf tenderness, normal capillary refill Skin Exam: warm/dry Neurologic: no motor/sensory deficits, alert, responsive Musculoskeletal: normal muscle bulk Laboratory Tests 04/23/20 06:00: White Blood Count 5.7, Red Blood Count 3.86L, Hemoglobin 12.1, Hematocrit 37.1, Mean Corpuscular Volume 96, Mean Corpuscular Hemoglobin 31.3H, Mean Corpuscular Hemoglobin Concent 32.5, Red Cell Distribution Width 12.3, Platelet Count 301, Mean Platelet Volume 6.4L, Neutrophils (%) (Auto) 79.8H, Lymphocytes (%) (Auto) 13.0L, Monocytes (%) (Auto) 7.0, Eosinophils (%) (Auto) 0.0, Basophils (%) (Auto) 0.1, Sodium Level 139, Potassium Level 4.2, Chloride Level 105, Carbon Dioxide Level 26, Anion Gap 8, Blood Urea Nitrogen 20H, Creatinine 0.9, Estimat Glomerular Filtration Rate > 60, Glucose Level 189H, Calcium Level 8.7, Phosphorus Level 4.2, Magnesium Level 2.1, Total Bilirubin 0.2, Direct Bilirubin < 0.1, Aspartate Amino Transf (AST/SGOT) 33, Alanine Aminotransferase (ALT/SGPT) 66, Alkaline Phosphatase 28L, C-Reactive Protein, Quantitative 2.3H, Total Protein 6.5, Albumin 2.5L, Globulin 4.0, Albumin/Globulin Ratio 0.6L Current Medications Medications (Trade) Dose Ordered Sig/Abeba Route PRN Reason Start Time Stop Time Status Last Admin Dose Admin Acetaminophen (Tylenol) 1,000 mg Q4H PRN ORAL For Pain 04/20/20 12:45 05/20/20 12:44 04/20/20 12:47 Albuterol Sulfate (Proventil MDI) 2 puff Q4H PRN INH Shortness of Breath 04/20/20 11:15 07/19/20 11:14 Azithromycin (Zithromax) 500 mg DAILY ORAL 04/21/20 09:00 04/28/20 08:59 04/23/20 08:28 Ceftriaxone Sodium 1 gm/ Dextrose 50 ml @ 100 mls/hr Q24H IVPB 04/20/20 18:00 04/27/20 17:59 04/22/20 17:11 Dexamethasone Sodium Phosphate (Decadron 4mg/ml vial) 6 mg Q24H IVP 04/19/20 22:00 04/28/20 23:59 04/22/20 21:07 Dextrose (Dextrose 50%) 25 ml Q30M PRN IV Hypoglycemia 04/19/20 21:00 07/18/20 20:59 Dextrose (Dextrose 50%) 50 ml Q30M PRN IV Hypoglycemia 04/19/20 21:00 07/18/20 20:59 Diphenhydramine HCl (Benadryl) 25 mg Q6H PRN ORAL Itching/Pruritis 04/19/20 21:00 05/19/20 20:59 Enoxaparin Sodium (Lovenox) 40 mg QHS SUBQ 04/19/20 22:00 07/18/20 21:59 04/22/20 21:06 Nitroglycerin (Ntg) 0.4 mg Q5M X 3 DOSES PRN SL Prn Chest Pain 04/19/20 21:00 05/19/20 20:59 Ondansetron HCl (Zofran) 4 mg Q6H PRN IVP Nausea & Vomiting 04/19/20 21:00 05/19/20 20:59 Remdesivir 100 mg/ Sodium Chloride 250 ml @ 250 mls/hr Q24H IV 04/21/20 21:00 04/24/20 21:59 04/22/20 21:06 Assessment/Plan Assessment/Plan ASSESSMENT COVID 19 infection Acute hypoxic rep failure 2/2 to COVID infection Hypokalemia Hx of HTN PLAN OF CARE MS floor isolation Date of sx onset: few days prior to presentation to ED Positive test: 04/19 rapid COVID 19 + O2 3 L NC HFA REM Day #3 ( 04/20- ) Dex Day# #4 ( 04/19-) DVT PPX: Lovenox D dimer -0.7 Trend CRP 6.5-> 2.3 Abx per ID recs CXR 04/22 -> Mildly increased interstitial markings and subtle hazy densities, concerning for an evolving pneumonitis. No focal consolidation. Monitor volumes and renal function Fup with consultants recs FC case discussed and evaluated by supervising physician Shira Chambers NP Apr 23, 2020 10:12 Avni Ac MD Apr 23, 2020 12:16
[2020-04-23 12:00] VITALS: BP 112/78
[2020-04-23 16:00] VITALS: BP 117/64
--- NOTE | 2020-04-23 16:05 | Surgery Progress Note ---
Surgery Progress Note Subjective Symptoms: improved, tolerating diet, passing flatus, pain decreased Objective Last 24 Hour Vital Signs Date Time Temp Pulse Resp B/P (MAP) Pulse Ox O2 Delivery O2 Flow Rate FiO2 04/23/20 12:00 97.7 72 18 112/78 (89) 96 04/23/20 09:00 Nasal Cannula 3.0 04/23/20 08:00 97.6 61 18 114/78 (90) 97 04/23/20 04:00 97.5 59 19 112/76 (88) 95 04/23/20 00:00 97.5 66 19 127/84 (98) 94 04/22/20 21:00 Nasal Cannula 3.0 04/22/20 20:00 97.7 60 19 139/90 (106) 94 I&O Intake and Output 04/22/20 04/23/20 19:00 07:00 Intake Total 600 ml 490 ml Balance 600 ml 490 ml Intake Oral 600 ml 240 ml IV Total 250 ml # Voids 3 2 Cardiovascular: RSR Respiratory: clear Abdomen: soft, flat, non-tender, present bowel sounds, non-distended Extremities: no edema, no tenderness, no cyanosis Laboratory Tests Test 04/23/20 06:00 White Blood Count 5.7 K/UL (4.8-10.8) Red Blood Count 3.86 M/UL (4.20-5.40) L Hemoglobin 12.1 G/DL (12.0-16.0) Hematocrit 37.1 % (37.0-47.0) Mean Corpuscular Volume 96 FL (80-99) Mean Corpuscular Hemoglobin 31.3 PG (27.0-31.0) H Mean Corpuscular Hemoglobin Concent 32.5 G/DL (32.0-36.0) Red Cell Distribution Width 12.3 % (11.6-14.8) Platelet Count 301 K/UL (150-450) Mean Platelet Volume 6.4 FL (6.5-10.1) L Neutrophils (%) (Auto) 79.8 % (45.0-75.0) H Lymphocytes (%) (Auto) 13.0 % (20.0-45.0) L Monocytes (%) (Auto) 7.0 % (1.0-10.0) Eosinophils (%) (Auto) 0.0 % (0.0-3.0) Basophils (%) (Auto) 0.1 % (0.0-2.0) Sodium Level 139 MMOL/L (136-145) Potassium Level 4.2 MMOL/L (3.5-5.1) Chloride Level 105 MMOL/L (98-107) Carbon Dioxide Level 26 MMOL/L (21-32) Anion Gap 8 mmol/L (5-15) Blood Urea Nitrogen 20 mg/dL (7-18) H Creatinine 0.9 MG/DL (0.55-1.30) Estimat Glomerular Filtration Rate > 60 mL/min (>60) Glucose Level 189 MG/DL (74-106) H Calcium Level 8.7 MG/DL (8.5-10.1) Phosphorus Level 4.2 MG/DL (2.5-4.9) Magnesium Level 2.1 MG/DL (1.8-2.4) Total Bilirubin 0.2 MG/DL (0.2-1.0) Direct Bilirubin < 0.1 MG/DL (0.0-0.3) Aspartate Amino Transf (AST/SGOT) 33 U/L (15-37) Alanine Aminotransferase (ALT/SGPT) 66 U/L (12-78) Alkaline Phosphatase 28 U/L (46-116) L C-Reactive Protein, Quantitative 2.3 mg/dL (0.00-0.90) H Total Protein 6.5 G/DL (6.4-8.2) Albumin 2.5 G/DL (3.4-5.0) L Globulin 4.0 g/dL Albumin/Globulin Ratio 0.6 (1.0-2.7) L Plan Problems: (1) Respiratory distress (2) Hypoxic (3) Abnormal LFTs Assessment & Plan: abd discomfort mild elevated lft's lip wnl no acute surgical intervention hold on US trend labs will follow with exam and recs. likely related to covid kub ordered (4) COVID-19 Assessment & Plan: ++ pulm tx o2 wean d dimer elevated lovenox Miguel Ángel Fitzgerald Apr 23, 2020 16:05
[2020-04-23] MEDS: cefTRIAXone 1 GM in D5W 50 ML IVPB SCH (17:33)
[2020-04-23 20:00] VITALS: BP 116/73
[2020-04-23] MEDS: Maintenance Dose:Remdesivir 100mg/NS 230ml x 4 Doses IV SCH ×2 (20:49)
--- NOTE | 2020-04-23 20:54 | General Progress Note ---
Subjective Allergies: Coded Allergies: No Known Allergies (Unverified , 04/19/20) Subjective No acute events overnight per nursing. Doing much better. Continues to be Intermittently on oxygen. 2 to 3 L nasal cannula. Feels fatigued but otherwise stable. Evp used. No other complaints Review of systems: Constitutional: Denies: chills, diaphoresis, fever, malaise, weakness, + Fatigue HEENT: Denies: eye pain, blurred vision, double vision, ear pain, nose pain, throat pain, Cardiovascular: Denies: chest pain, edema, lightheadedness, palpitations Respiratory: Endorses Cough and SOB Gastrointestinal/Abdominal: Denies: abdominal pain, black stools, blood in stool, constipation, diarrhea, nausea, poor fluid intake vomiting, other Genitourinary: Denies: burning, discharge, frequency, Neurologic/Psychiatric: Denies: headache, numbness, paresthesia, new weakness, other Endocrine: Denies: excessive sweating, flushing, intolerance to cold, MSK: denies joint pains, swelling, stiffness Hematologic/Lymphatic: Denies: anemia, easy bleeding, easy bruising, Psych: no anxiety, depression, SI or HI Objective Last 24 Hour Vital Signs Date Time Temp Pulse Resp B/P (MAP) Pulse Ox O2 Delivery O2 Flow Rate FiO2 04/23/20 16:00 97.7 72 18 117/64 (81) 97 04/23/20 12:00 97.7 72 18 112/78 (89) 96 04/23/20 09:00 Nasal Cannula 3.0 04/23/20 08:00 97.6 61 18 114/78 (90) 97 04/23/20 04:00 97.5 59 19 112/76 (88) 95 04/23/20 00:00 97.5 66 19 127/84 (98) 94 04/22/20 21:00 Nasal Cannula 3.0 Intake and Output 04/22/20 04/23/20 19:00 07:00 Intake Total 600 ml 490 ml Balance 600 ml 490 ml Intake Oral 600 ml 240 ml IV Total 250 ml # Voids 3 2 Laboratory Tests 04/23/20 06:00: White Blood Count 5.7, Red Blood Count 3.86L, Hemoglobin 12.1, Hematocrit 37.1, Mean Corpuscular Volume 96, Mean Corpuscular Hemoglobin 31.3H, Mean Corpuscular Hemoglobin Concent 32.5, Red Cell Distribution Width 12.3, Platelet Count 301, Mean Platelet Volume 6.4L, Neutrophils (%) (Auto) 79.8H, Lymphocytes (%) (Auto) 13.0L, Monocytes (%) (Auto) 7.0, Eosinophils (%) (Auto) 0.0, Basophils (%) (Auto) 0.1, Sodium Level 139, Potassium Level 4.2, Chloride Level 105, Carbon Dioxide Level 26, Anion Gap 8, Blood Urea Nitrogen 20H, Creatinine 0.9, Estimat Glomerular Filtration Rate > 60, Glucose Level 189H, Calcium Level 8.7, Phosphorus Level 4.2, Magnesium Level 2.1, Total Bilirubin 0.2, Direct Bilirubin < 0.1, Aspartate Amino Transf (AST/SGOT) 33, Alanine Aminotransferase (ALT/SGPT) 66, Alkaline Phosphatase 28L, C-Reactive Protein, Quantitative 2.3H, Total Protein 6.5, Albumin 2.5L, Globulin 4.0, Albumin/Globulin Ratio 0.6L Height (Feet): 5 Height (Inches): 2.00 Weight (Pounds): 135 Objective General: WDWN female in NAD, A&O x 4 HEENT: Normocephalic cephalic atraumatic, pupils equal round reactive to light and accommodation, nares patent and no symmetrical, no tonsillar exudates, mucous membranes moist CV: Regular rate regular rhythm, no murmurs, rubs, or gallops Pulm: Lungs clear to auscultation bilaterally. No wheezes, rhonchi, or rales GI: Soft, nontender, nondistended, bowel sounds present Neuro: CN 2-12 intact bilaterally, no focal signs. Ext: No lower extremity edema bilaterally Skin: no rashes lesions or ulcers Msk: Joints symmetrical in upper extremity and lower extremity bilaterally, no joint swelling. Lymph: No lymphadenopathy in upper extremity and lower extremity Assessment/Plan Status: stable, unchanged Assessment/Plan: 69 yo F w/o relevant PMH admitted for Covid and Acute Hypoxic Resp Failure: Assessment/Plan #Acute Hypoxic Resp Failure 2/2 COVID #COVID PNA w/ associated High Inflammatory Markers #?Superimposed CAP -Appreciate Pulm, Dr. Ac. D/w -Consult ID, Dr. Kelly -Decadron/MDI (04/20 - ) -Remdesivir (04/20 - ) - Rocephin (04/20 - ) - Azithromycin (04/20 - ) - Abx per ID - Appreciate ID recommendations: Alkaspooles -Pandey Cx; pending -Trend Inflammatory Markers -Supportive measures/Pain control -Negative fluid balance best - wean off oxygen as tolerated - CXR reviewed: pneumonitis? #Hypokalemia/Electrolyte Derrangements -Replete prn FENPPX DVTPPX: - lovenox Fluids: PRN Diet: yes Lines: PIV PT/OT: pending Code status: Full Dispo: home when off oxygen Reason for Continued Hospitalization: hypoxic resp failure MIPS (Merit-based Incentive Payment System) Applicable CPT: 07038, 78864 CHECK ALL THAT ARE MET: [] Measure #5 (CHF): All ages. Prescribe SALO/ARB upon discharge for patients with left ventricular systolic dysfunction. If not, the reason is clearly documented in the medical chart [] Measure #8 (CHF): All ages. Prescribe a beta ashly upon discharge for patients with left ventricular systolic dysfunction. If not, the reason is clearly documented in the medical chart. [] Measure #47: Advance care plan or surrogate decision maker documented in the medical record. [x] Measure #130 The provider has documented, updated, or reviewed the patients current medication list and has documented it in the patients note. [x] Measure #374 (All): Send report to referring provider. [] Measure #407(Sepsis due to MSSA bacteremia): Age 18+ Patient treated with a beta-lactam antibiotic (Nafcillin, Oxacillin or Cefazolin) as definitive therapy. MEDICAL COMPLEXITYHigh complexity medical decision making (need 2/3 categories)Problem - need 4 points [x]Acute/new problem with new plan for workup (4 points, 1 max) [] Acute/new problem without additional workup (3 points, 1 max) [x] Unstable chronic problem actively being managed (2 point each, 2 max) [x] Stable chronic problem actively being managed (1 point each, 2 max) [] Self-limited/transient process (constipation, muscle ache, etc) (1 point each, 2 max) Data - need 4 points [x] Reviewed labs/imaging studies (1 points, 2 max) [x] Independent review of imaging (EKG, xrays, etc) (2 points, 2 max) [x] Discussed case with consult/other MD/RN (2 points, 2 max) High Risk - qualify if have one of the following: [x] Severe exacerbation of acute problem, acute mental status change, IV narcotics, monitoring drug levels (vancomycin, INR, tacrolimus etc) I spent 36 minutes on this patient's case, and 20 mins was dedicated to counseling and/or care coordination. Discussed with pulching, ROB, Rn Time of note may not reflect time of encounter Jose Miguel Yao D.O. Apr 23, 2020 20:54
[2020-04-23] MEDS: Enoxaparin 40mg Inj SUBQ SCH (21:13)
[2020-04-24] VITALS: BP 120/70
[2020-04-24 04:00] VITALS: BP 121/71
[2020-04-24 05:39] LABS: BASOPHILS % (AUTO) 1.7 % (0.0-2.0); HEMATOCRIT 37.7 % (37.0-47.0); HEMOGLOBIN 12.7 G/DL (12.0-16.0); MEAN CORPUSCULAR VOLUME 92 FL (80-99); MONOCYTES % (AUTO) 4.6 % (1.0-10.0); NEUTROPHILS % (AUTO) 81.7 % (45.0-75.0); PLATELET COUNT 341 K/UL (150-450); RED BLOOD COUNT 4.08 M/UL (4.20-5.40); RED CELL DISTRIBUTION WIDTH 11.9 % (11.6-14.8); WHITE BLOOD COUNT 6.5 K/UL (4.8-10.8)
[2020-04-24 06:00] LABS: ALANINE AMINOTRANSFERASE 92 U/L (12-78); ALBUMIN 2.6 G/DL (3.4-5.0); ALBUMIN/GLOBULIN RATIO 0.6 (1.0-2.7); ALKALINE PHOSPHATASE 31 U/L (46-116); ANION GAP 6 mmol/L (5-15); ASPARTATE AMINO TRANSFERASE 56 U/L (15-37); BILIRUBIN,DIRECT 0.2 MG/DL (0.0-0.3); BILIRUBIN,TOTAL 0.3 MG/DL (0.2-1.0); BLOOD UREA NITROGEN 20 mg/dL (7-18); CALCIUM 8.7 MG/DL (8.5-10.1); CARBON DIOXIDE 26 MMOL/L (21-32); CHLORIDE 104 MMOL/L (98-107); CREATININE 0.9 MG/DL (0.55-1.30); POTASSIUM 4.3 MMOL/L (3.5-5.1); SODIUM 136 MMOL/L (136-145)
[2020-04-24 08:00] VITALS: BP 100/67
[2020-04-24] MEDS: Azithromycin 250mg tab ORAL SCH (08:09)
[2020-04-24 11:46] VITALS: BP 105/64
--- NOTE | 2020-04-24 12:11 | Pulmonology Progress Note ---
Subjective ROS Limited/Unobtainable: No Constitutional: Reports: fatigue Musculoskeletal: Reports: pain Allergies: Coded Allergies: No Known Allergies (Unverified , 04/19/20) Subjective afebrile, no leukocytosis no resp distress remains on 3 L O2 via NC reports chest discomfort with deep breathing , but denies SOB , no CP Objective Last 24 Hour Vital Signs Date Time Temp Pulse Resp B/P (MAP) Pulse Ox O2 Delivery O2 Flow Rate FiO2 04/24/20 11:46 98.0 72 18 105/64 (78) 94 04/24/20 08:10 Nasal Cannula 3.0 04/24/20 08:00 97.8 70 18 100/67 (78) 95 04/24/20 04:00 97.4 70 18 121/71 (88) 98 04/24/20 00:00 98.9 62 18 120/70 (87) 98 04/23/20 21:00 Nasal Cannula 3.0 04/23/20 20:00 97.8 65 18 116/73 (87) 97 04/23/20 16:00 97.7 72 18 117/64 (81) 97 Intake and Output 04/23/20 04/24/20 19:00 07:00 Intake Total 500 ml 350 ml Output Total 3 ml Balance 500 ml 347 ml Intake Oral 500 ml 350 ml Output Urine Total 3 ml Objective General Appearance: WD/WN, no apparent distress Lines, tubes and drains: peripheral HEENT: normocephalic, atraumatic, anicteric, mucous membranes moist, PERRL, O2 3 L via NC Neck: non-tender, supple Respiratory/Chest: lungs clear - with moderate air exchange , no respiratory distress, no accessory muscle use Cardiovascular/Chest: normal peripheral pulses, normal rate Abdomen: normal bowel sounds, non tender, soft Extremities: normal range of motion, no calf tenderness, normal capillary refill Skin Exam: warm/dry Neurologic: no motor/sensory deficits, alert, responsive Musculoskeletal: normal muscle bulk Laboratory Tests 04/24/20 05:00: White Blood Count 6.5, Red Blood Count 4.08L, Hemoglobin 12.7, Hematocrit 37.7, Mean Corpuscular Volume 92, Mean Corpuscular Hemoglobin 31.2H, Mean Corpuscular Hemoglobin Concent 33.7, Red Cell Distribution Width 11.9, Platelet Count 341, Mean Platelet Volume 6.3L, Neutrophils (%) (Auto) 81.7H, Lymphocytes (%) (Auto) 12.0L, Monocytes (%) (Auto) 4.6, Eosinophils (%) (Auto) 0.0, Basophils (%) (Auto) 1.7, Sodium Level 136, Potassium Level 4.3, Chloride Level 104, Carbon Dioxide Level 26, Anion Gap 6, Blood Urea Nitrogen 20H, Creatinine 0.9, Estimat Glomerular Filtration Rate > 60, Glucose Level 207H, Calcium Level 8.7, Total Bilirubin 0.3, Direct Bilirubin 0.2, Aspartate Amino Transf (AST/SGOT) 56H, Alanine Aminotransferase (ALT/SGPT) 92H, Alkaline Phosphatase 31L, Total Protein 6.7, Albumin 2.6L, Globulin 4.1, Albumin/Globulin Ratio 0.6L Current Medications Medications (Trade) Dose Ordered Sig/Abeba Route PRN Reason Start Time Stop Time Status Last Admin Dose Admin Acetaminophen (Tylenol) 1,000 mg Q4H PRN ORAL For Pain 04/20/20 12:45 05/20/20 12:44 04/20/20 12:47 Albuterol Sulfate (Proventil MDI) 2 puff Q4H PRN INH Shortness of Breath 04/20/20 11:15 07/19/20 11:14 Azithromycin (Zithromax) 500 mg DAILY ORAL 04/21/20 09:00 04/28/20 08:59 04/24/20 08:09 Ceftriaxone Sodium 1 gm/ Dextrose 50 ml @ 100 mls/hr Q24H IVPB 04/20/20 18:00 04/27/20 17:59 04/23/20 17:33 Dexamethasone Sodium Phosphate (Decadron 4mg/ml vial) 6 mg Q24H IVP 04/19/20 22:00 04/28/20 23:59 04/23/20 21:14 Dextrose (Dextrose 50%) 25 ml Q30M PRN IV Hypoglycemia 04/19/20 21:00 07/18/20 20:59 Dextrose (Dextrose 50%) 50 ml Q30M PRN IV Hypoglycemia 04/19/20 21:00 07/18/20 20:59 Diphenhydramine HCl (Benadryl) 25 mg Q6H PRN ORAL Itching/Pruritis 04/19/20 21:00 05/19/20 20:59 Enoxaparin Sodium (Lovenox) 40 mg QHS SUBQ 04/19/20 22:00 07/18/20 21:59 04/23/20 21:13 Nitroglycerin (Ntg) 0.4 mg Q5M X 3 DOSES PRN SL Prn Chest Pain 04/19/20 21:00 05/19/20 20:59 Ondansetron HCl (Zofran) 4 mg Q6H PRN IVP Nausea & Vomiting 04/19/20 21:00 05/19/20 20:59 Remdesivir 100 mg/ Sodium Chloride 250 ml @ 250 mls/hr Q24H IV 04/21/20 21:00 04/24/20 21:59 04/23/20 20:49 Assessment/Plan Assessment/Plan ASSESSMENT COVID 19 infection Acute hypoxic rep failure /2 to COVID infection Hypokalemia Hx of HTN PLAN OF CARE MS floor isolation Date of sx onset: few days prior to presentation to ED Positive test: 04/19 rapid COVID 19 + O2 3 L NC HFA REM Day #4 ( 04/20- ) Dex Day# #5 ( 04/19-) DVT PPX: Lovenox D dimer -0.7 Trend CRP 6.5-> 2.3 Abx per ID recs CXR 04/22 -> Mildly increased interstitial markings and subtle hazy densities, concerning for an evolving pneumonitis. No focal consolidation. Monitor volumes and renal function Fup with consultants recs FC case discussed and evaluated by supervising physician Shira Chambers NP Apr 24, 2020 12:11 Avni Ac MD Apr 24, 2020 20:50
--- NOTE | 2020-04-24 12:27 | Surgery Progress Note ---
Surgery Progress Note Subjective Symptoms: improved, tolerating diet, passing flatus, BM Objective Last 24 Hour Vital Signs Date Time Temp Pulse Resp B/P (MAP) Pulse Ox O2 Delivery O2 Flow Rate FiO2 04/24/20 11:46 98.0 72 18 105/64 (78) 94 04/24/20 08:10 Nasal Cannula 3.0 04/24/20 08:00 97.8 70 18 100/67 (78) 95 04/24/20 04:00 97.4 70 18 121/71 (88) 98 04/24/20 00:00 98.9 62 18 120/70 (87) 98 04/23/20 21:00 Nasal Cannula 3.0 04/23/20 20:00 97.8 65 18 116/73 (87) 97 04/23/20 16:00 97.7 72 18 117/64 (81) 97 I&O Intake and Output 04/23/20 04/24/20 19:00 07:00 Intake Total 500 ml 350 ml Output Total 3 ml Balance 500 ml 347 ml Intake Oral 500 ml 350 ml Output Urine Total 3 ml Cardiovascular: RSR Respiratory: clear Abdomen: soft, non-tender, present bowel sounds Extremities: no edema, no tenderness, no cyanosis Laboratory Tests Test 04/24/20 05:00 White Blood Count 6.5 K/UL (4.8-10.8) Red Blood Count 4.08 M/UL (4.20-5.40) L Hemoglobin 12.7 G/DL (12.0-16.0) Hematocrit 37.7 % (37.0-47.0) Mean Corpuscular Volume 92 FL (80-99) Mean Corpuscular Hemoglobin 31.2 PG (27.0-31.0) H Mean Corpuscular Hemoglobin Concent 33.7 G/DL (32.0-36.0) Red Cell Distribution Width 11.9 % (11.6-14.8) Platelet Count 341 K/UL (150-450) Mean Platelet Volume 6.3 FL (6.5-10.1) L Neutrophils (%) (Auto) 81.7 % (45.0-75.0) H Lymphocytes (%) (Auto) 12.0 % (20.0-45.0) L Monocytes (%) (Auto) 4.6 % (1.0-10.0) Eosinophils (%) (Auto) 0.0 % (0.0-3.0) Basophils (%) (Auto) 1.7 % (0.0-2.0) Sodium Level 136 MMOL/L (136-145) Potassium Level 4.3 MMOL/L (3.5-5.1) Chloride Level 104 MMOL/L (98-107) Carbon Dioxide Level 26 MMOL/L (21-32) Anion Gap 6 mmol/L (5-15) Blood Urea Nitrogen 20 mg/dL (7-18) H Creatinine 0.9 MG/DL (0.55-1.30) Estimat Glomerular Filtration Rate > 60 mL/min (>60) Glucose Level 207 MG/DL (74-106) H Calcium Level 8.7 MG/DL (8.5-10.1) Total Bilirubin 0.3 MG/DL (0.2-1.0) Direct Bilirubin 0.2 MG/DL (0.0-0.3) Aspartate Amino Transf (AST/SGOT) 56 U/L (15-37) H Alanine Aminotransferase (ALT/SGPT) 92 U/L (12-78) H Alkaline Phosphatase 31 U/L (46-116) L Total Protein 6.7 G/DL (6.4-8.2) Albumin 2.6 G/DL (3.4-5.0) L Globulin 4.1 g/dL Albumin/Globulin Ratio 0.6 (1.0-2.7) L Plan Problems: (1) Respiratory distress (2) Hypoxic (3) Abnormal LFTs Assessment & Plan: abd discomfort mild elevated lft's lip wnl no acute surgical intervention hold on US trend labs will follow with exam and recs. likely related to covid kub ordered (4) COVID-19 Assessment & Plan: ++ pulm tx o2 wean d dimer elevated lovenox Miguel Ángel Fitzgerald Apr 24, 2020 12:27
[2020-04-24 16:08] VITALS: BP 111/82
[2020-04-24] MEDS: cefTRIAXone 1 GM in D5W 50 ML IVPB SCH (17:07)
--- NOTE | 2020-04-24 18:18 | General Progress Note ---
Subjective Date patient seen: Apr 24, 2020 Allergies: Coded Allergies: No Known Allergies (Unverified , 04/19/20) Subjective No acute events overnight per nursing. Doing much better. Continues to be Intermittently on oxygen. 2 to 3 L nasal cannula. Unchanged. Feels fatigued but otherwise stable. Slightly improved. [employer] used. No other complaints Review of systems: Constitutional: Denies: chills, diaphoresis, fever, malaise, weakness, + Fatigue HEENT: Denies: eye pain, blurred vision, double vision, ear pain, nose pain, throat pain, Cardiovascular: Denies: chest pain, edema, lightheadedness, palpitations Respiratory: Endorses Cough and SOB Gastrointestinal/Abdominal: Denies: abdominal pain, black stools, blood in stool, constipation, diarrhea, nausea, poor fluid intake vomiting, other Genitourinary: Denies: burning, discharge, frequency, Neurologic/Psychiatric: Denies: headache, numbness, paresthesia, new weakness, other Endocrine: Denies: excessive sweating, flushing, intolerance to cold, MSK: denies joint pains, swelling, stiffness Hematologic/Lymphatic: Denies: anemia, easy bleeding, easy bruising, Psych: no anxiety, depression, SI or HI Objective Last 24 Hour Vital Signs Date Time Temp Pulse Resp B/P (MAP) Pulse Ox O2 Delivery O2 Flow Rate FiO2 04/24/20 16:08 98.2 62 18 111/82 (92) 93 04/24/20 11:46 98.0 72 18 105/64 (78) 94 04/24/20 08:10 Nasal Cannula 3.0 04/24/20 08:00 97.8 70 18 100/67 (78) 95 04/24/20 04:00 97.4 70 18 121/71 (88) 98 04/24/20 00:00 98.9 62 18 120/70 (87) 98 04/23/20 21:00 Nasal Cannula 3.0 04/23/20 20:00 97.8 65 18 116/73 (87) 97 Intake and Output 04/23/20 04/24/20 19:00 07:00 Intake Total 500 ml 350 ml Output Total 3 ml Balance 500 ml 347 ml Intake Oral 500 ml 350 ml Output Urine Total 3 ml Laboratory Tests 04/24/20 05:00: White Blood Count 6.5, Red Blood Count 4.08L, Hemoglobin 12.7, Hematocrit 37.7, Mean Corpuscular Volume 92, Mean Corpuscular Hemoglobin 31.2H, Mean Corpuscular Hemoglobin Concent 33.7, Red Cell Distribution Width 11.9, Platelet Count 341, Mean Platelet Volume 6.3L, Neutrophils (%) (Auto) 81.7H, Lymphocytes (%) (Auto) 12.0L, Monocytes (%) (Auto) 4.6, Eosinophils (%) (Auto) 0.0, Basophils (%) (Auto) 1.7, Sodium Level 136, Potassium Level 4.3, Chloride Level 104, Carbon Dioxide Level 26, Anion Gap 6, Blood Urea Nitrogen 20H, Creatinine 0.9, Estimat Glomerular Filtration Rate > 60, Glucose Level 207H, Calcium Level 8.7, Total Bilirubin 0.3, Direct Bilirubin 0.2, Aspartate Amino Transf (AST/SGOT) 56H, Alanine Aminotransferase (ALT/SGPT) 92H, Alkaline Phosphatase 31L, Total Protein 6.7, Albumin 2.6L, Globulin 4.1, Albumin/Globulin Ratio 0.6L Height (Feet): 5 Height (Inches): 2.00 Weight (Pounds): 135 Objective General: WDWN female in NAD, A&O x 4 HEENT: Normocephalic cephalic atraumatic, pupils equal round reactive to light and accommodation, nares patent and no symmetrical, no tonsillar exudates, mucous membranes moist CV: Regular rate regular rhythm, no murmurs, rubs, or gallops Pulm: Lungs clear to auscultation bilaterally. No wheezes, rhonchi, or rales GI: Soft, nontender, nondistended, bowel sounds present Neuro: CN 2-12 intact bilaterally, no focal signs. Ext: No lower extremity edema bilaterally Skin: no rashes lesions or ulcers Msk: Joints symmetrical in upper extremity and lower extremity bilaterally, no joint swelling. Lymph: No lymphadenopathy in upper extremity and lower extremity Assessment/Plan Status: stable, unchanged Assessment/Plan: 69 yo F w/o relevant PMH admitted for Covid and Acute Hypoxic Resp Failure: Assessment/Plan #Acute Hypoxic Resp Failure 2/2 COVID #COVID PNA w/ associated High Inflammatory Markers #?Superimposed CAP -Appreciate Pulm, Dr. Ac. D/w -Consult ID, Dr. Mendoza -Decadron/MDMj (04/20 - ) -Remdesivir (04/20 - ) - Rocephin (04/20 - ) - Azithromycin (04/20 - ) - Abx per ID - Appreciate ID recommendations: Alkaspooles -Pandey Cx; pending -Trend Inflammatory Markers -Supportive measures/Pain control -Negative fluid balance best - wean off oxygen as tolerated - CXR reviewed: pneumonitis? -obtain room air and ambulatory sats. D/w nursing #Hypokalemia/Electrolyte Derrangements -Replete prn FENPPX DVTPPX: - lovenox Fluids: PRN Diet: yes Lines: PIV PT/OT: pending Code status: Full Dispo: home when off oxygen Reason for Continued Hospitalization: hypoxic resp failure MIPS (Merit-based Incentive Payment System) Applicable CPT: 83852, 01761 CHECK ALL THAT ARE MET: [] Measure #5 (CHF): All ages. Prescribe SALO/ARB upon discharge for patients with left ventricular systolic dysfunction. If not, the reason is clearly documented in the medical chart [] Measure #8 (CHF): All ages. Prescribe a beta ashly upon discharge for patients with left ventricular systolic dysfunction. If not, the reason is clearly documented in the medical chart. [] Measure #47: Advance care plan or surrogate decision maker documented in the medical record. [x] Measure #130 The provider has documented, updated, or reviewed the patients current medication list and has documented it in the patients note. [x] Measure #374 (All): Send report to referring provider. [] Measure #407(Sepsis due to MSSA bacteremia): Age 18+ Patient treated with a beta-lactam antibiotic (Nafcillin, Oxacillin or Cefazolin) as definitive therapy. MEDICAL COMPLEXITYHigh complexity medical decision making (need 2/3 categories)Problem - need 4 points [x]Acute/new problem with new plan for workup (4 points, 1 max) [] Acute/new problem without additional workup (3 points, 1 max) [x] Unstable chronic problem actively being managed (2 point each, 2 max) [x] Stable chronic problem actively being managed (1 point each, 2 max) [] Self-limited/transient process (constipation, muscle ache, etc) (1 point each, 2 max) Data - need 4 points [x] Reviewed labs/imaging studies (1 points, 2 max) [x] Independent review of imaging (EKG, xrays, etc) (2 points, 2 max) [x] Discussed case with consult/other MD/RN (2 points, 2 max) High Risk - qualify if have one of the following: [x] Severe exacerbation of acute problem, acute mental status change, IV narcotics, monitoring drug levels (vancomycin, INR, tacrolimus etc) I spent 37 minutes on this patient's case, and 21 mins was dedicated to counseling and/or care coordination. Discussed with pulching, ID, Rn Time of note may not reflect time of encounter Jose Miguel aYo D.O. Apr 24, 2020 18:18
[2020-04-24 20:00] VITALS: BP 108/75
[2020-04-24] MEDS: Maintenance Dose:Remdesivir 100mg/NS 230ml x 4 Doses IV SCH ×2 (21:25)
[2020-04-24] MEDS: Enoxaparin 40mg Inj SUBQ SCH (21:26)
--- NOTE | 2020-04-24 21:45 | Infectious Diseases Prog Note ---
Assessment/Plan Assessment/Plan ASSESSMENT AND PLAN: 1.covid-19 infection, ? 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 COVID isolation. 3. Hypertension. 4. Blood pressure treatment per primary care team. 5. Continue treatment per primary consultants. 6. No known allergies. 7. Social history negative. 8. Family history noncontributory. 9. MAR was noted. 10. Case discussed with RN. Subjective Constitutional: Reports: fatigue, other - nad HEENT: Reports: congestion - less Respiratory: Reports: shortness of breath - less Cardiovascular: Denies: chest pain Gastrointestinal/Abdominal: Denies: vomiting, diarrhea Genitourinary: Reports: other - no ponce Neurologic: Denies: headache Psychiatric: Denies: depression Skin: Denies: rash Hematologic: Denies: bleeding Musculoskeletal: Denies: pain Allergies: Coded Allergies: No Known Allergies (Unverified , 04/19/20) Objective Last 24 Hour Vital Signs Date Time Temp Pulse Resp B/P (MAP) Pulse Ox O2 Delivery O2 Flow Rate FiO2 04/24/20 16:08 98.2 62 18 111/82 (92) 93 04/24/20 11:46 98.0 72 18 105/64 (78) 94 04/24/20 08:10 Nasal Cannula 3.0 04/24/20 08:00 97.8 70 18 100/67 (78) 95 04/24/20 04:00 97.4 70 18 121/71 (88) 98 04/24/20 00:00 98.9 62 18 120/70 (87) 98 Height (Feet): 5 Height (Inches): 2.00 Weight (Pounds): 135 General Appearance: no acute distress HEENT: normocephalic, atraumatic, anicteric, mucous membranes moist Respiratory/Chest: crackles/rales, rhonchi - bilaterally Cardiovascular: normal rate, regular rhythm, no gallop/murmur, no JVD Abdomen: normal bowel sounds, soft, non tender, no organomegaly, non distended Genitourinary: other - no ponce Extremities: no cyanosis Skin: no rash 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 The lungs are otherwise clear without focal consolidation. Pleural space: Unremarkable. The costophrenic angles are sharp. No visible pneumothorax. Heart: Unremarkable. No cardiomegaly. Mediastinum: Unremarkable. Bones/joints: Unremarkable. IMPRESSION: Mildly increased interstitial markings and subtle hazy densities. This is concerning for an evolving pneumonitis. No focal consolidation. Microbiology Date/Time Source Procedure Growth Status 04/19/20 18:15 Blood Blood Culture - Preliminary NO GROWTH AFTER 4 DAYS Resulted 04/19/20 18:12 Nasopharynx SARS-CoV-2 RdRp Gene Assay - Final Complete Laboratory Tests Test 04/24/20 05:00 White Blood Count 6.5 K/UL (4.8-10.8) Red Blood Count 4.08 M/UL (4.20-5.40) L Hemoglobin 12.7 G/DL (12.0-16.0) Hematocrit 37.7 % (37.0-47.0) Mean Corpuscular Volume 92 FL (80-99) Mean Corpuscular Hemoglobin 31.2 PG (27.0-31.0) H Mean Corpuscular Hemoglobin Concent 33.7 G/DL (32.0-36.0) Red Cell Distribution Width 11.9 % (11.6-14.8) Platelet Count 341 K/UL (150-450) Mean Platelet Volume 6.3 FL (6.5-10.1) L Neutrophils (%) (Auto) 81.7 % (45.0-75.0) H Lymphocytes (%) (Auto) 12.0 % (20.0-45.0) L Monocytes (%) (Auto) 4.6 % (1.0-10.0) Eosinophils (%) (Auto) 0.0 % (0.0-3.0) Basophils (%) (Auto) 1.7 % (0.0-2.0) Sodium Level 136 MMOL/L (136-145) Potassium Level 4.3 MMOL/L (3.5-5.1) Chloride Level 104 MMOL/L (98-107) Carbon Dioxide Level 26 MMOL/L (21-32) Anion Gap 6 mmol/L (5-15) Blood Urea Nitrogen 20 mg/dL (7-18) H Creatinine 0.9 MG/DL (0.55-1.30) Estimat Glomerular Filtration Rate > 60 mL/min (>60) Glucose Level 207 MG/DL (74-106) H Calcium Level 8.7 MG/DL (8.5-10.1) Total Bilirubin 0.3 MG/DL (0.2-1.0) Direct Bilirubin 0.2 MG/DL (0.0-0.3) Aspartate Amino Transf (AST/SGOT) 56 U/L (15-37) H Alanine Aminotransferase (ALT/SGPT) 92 U/L (12-78) H Alkaline Phosphatase 31 U/L (46-116) L Total Protein 6.7 G/DL (6.4-8.2) Albumin 2.6 G/DL (3.4-5.0) L Globulin 4.1 g/dL Albumin/Globulin Ratio 0.6 (1.0-2.7) L Current Medications Medications (Trade) Dose Ordered Sig/Abeba Route PRN Reason Start Time Stop Time Status Last Admin Dose Admin Acetaminophen (Tylenol) 1,000 mg Q4H PRN ORAL For Pain 04/20/20 12:45 05/20/20 12:44 04/20/20 12:47 Albuterol Sulfate (Proventil MDI) 2 puff Q4H PRN INH Shortness of Breath 04/20/20 11:15 07/19/20 11:14 Azithromycin (Zithromax) 500 mg DAILY ORAL 04/21/20 09:00 04/28/20 08:59 04/24/20 08:09 Ceftriaxone Sodium 1 gm/ Dextrose 50 ml @ 100 mls/hr Q24H IVPB 04/20/20 18:00 04/27/20 17:59 04/24/20 17:07 Dexamethasone Sodium Phosphate (Decadron 4mg/ml vial) 6 mg Q24H IVP 04/19/20 22:00 04/28/20 23:59 04/24/20 21:27 Dextrose (Dextrose 50%) 25 ml Q30M PRN IV Hypoglycemia 04/19/20 21:00 07/18/20 20:59 Dextrose (Dextrose 50%) 50 ml Q30M PRN IV Hypoglycemia 04/19/20 21:00 07/18/20 20:59 Diphenhydramine HCl (Benadryl) 25 mg Q6H PRN ORAL Itching/Pruritis 04/19/20 21:00 05/19/20 20:59 Enoxaparin Sodium (Lovenox) 40 mg QHS SUBQ 04/19/20 22:00 07/18/20 21:59 04/24/20 21:26 Nitroglycerin (Ntg) 0.4 mg Q5M X 3 DOSES PRN SL Prn Chest Pain 04/19/20 21:00 05/19/20 20:59 Ondansetron HCl (Zofran) 4 mg Q6H PRN IVP Nausea & Vomiting 04/19/20 21:00 05/19/20 20:59 Remdesivir 100 mg/ Sodium Chloride 250 ml @ 250 mls/hr Q24H IV 04/21/20 21:00 04/24/20 21:59 04/24/20 21:25 Joaquín Banuelos MD Apr 24, 2020 21:44
[2020-04-25] VITALS: BP 108/73
[2020-04-25 04:00] VITALS: BP 109/75
[2020-04-25 07:22] LABS: BASOPHILS % (AUTO) 0.1 % (0.0-2.0); HEMOGLOBIN 12.8 G/DL (12.0-16.0); LYMPHOCYTES % (AUTO) 18.5 % (20.0-45.0); MEAN CORPUSCULAR VOLUME 93 FL (80-99); MONOCYTES % (AUTO) 3.2 % (1.0-10.0); NEUTROPHILS % (AUTO) 78.2 % (45.0-75.0); PLATELET COUNT 380 K/UL (150-450); RED CELL DISTRIBUTION WIDTH 11.9 % (11.6-14.8); WHITE BLOOD COUNT 6.2 K/UL (4.8-10.8)
[2020-04-25 08:00] VITALS: BP 108/73
[2020-04-25 08:09] LABS: ALANINE AMINOTRANSFERASE 99 U/L (12-78); ALBUMIN 2.8 G/DL (3.4-5.0); ALBUMIN/GLOBULIN RATIO 0.7 (1.0-2.7); ALKALINE PHOSPHATASE 29 U/L (46-116); ANION GAP 9 mmol/L (5-15); ASPARTATE AMINO TRANSFERASE 41 U/L (15-37); BILIRUBIN,TOTAL 0.3 MG/DL (0.2-1.0); BLOOD UREA NITROGEN 20 mg/dL (7-18); CARBON DIOXIDE 26 MMOL/L (21-32); CHLORIDE 103 MMOL/L (98-107); CREATININE 0.9 MG/DL (0.55-1.30); PHOSPHORUS 4.6 MG/DL (2.5-4.9); POTASSIUM 4.4 MMOL/L (3.5-5.1); SODIUM 138 MMOL/L (136-145)
[2020-04-25] MEDS: Azithromycin 250mg tab ORAL SCH (08:13)
--- NOTE | 2020-04-25 10:17 | Pulmonology Progress Note ---
Subjective Allergies: Coded Allergies: No Known Allergies (Unverified , 04/19/20) Subjective afebrile, no leukocytosis no resp distress remains on 3 L O2 via NC clinically improving Objective Last 24 Hour Vital Signs Date Time Temp Pulse Resp B/P (MAP) Pulse Ox O2 Delivery O2 Flow Rate FiO2 04/25/20 09:00 Nasal Cannula 3.0 04/25/20 08:00 97.7 68 20 108/73 (85) 96 04/25/20 04:00 97.6 72 18 109/75 (86) 96 04/25/20 00:00 98.0 67 18 108/73 (85) 99 04/24/20 21:00 Nasal Cannula 3.0 04/24/20 20:00 97.5 66 18 108/75 (86) 94 04/24/20 16:08 98.2 62 18 111/82 (92) 93 04/24/20 11:46 98.0 72 18 105/64 (78) 94 Intake and Output 04/24/20 04/25/20 19:00 07:00 Intake Total 750 ml 200 ml Balance 750 ml 200 ml Intake Oral 700 ml 200 ml IV Total 50 ml # Voids 3 2 Objective General Appearance: WD/WN, no apparent distress Lines, tubes and drains: peripheral HEENT: normocephalic, atraumatic, anicteric, mucous membranes moist, PERRL, O2 3 L via NC Neck: non-tender, supple Respiratory/Chest: lungs clear - with moderate air exchange , no respiratory distress, no accessory muscle use Cardiovascular/Chest: normal peripheral pulses, normal rate Abdomen: normal bowel sounds, non tender, soft Extremities: normal range of motion, no calf tenderness, normal capillary refill Skin Exam: warm/dry Neurologic: no motor/sensory deficits, alert, responsive Musculoskeletal: normal muscle bulk Laboratory Tests 04/25/20 05:00: White Blood Count 6.2, Red Blood Count 4.10L, Hemoglobin 12.8, Hematocrit 38.0, Mean Corpuscular Volume 93, Mean Corpuscular Hemoglobin 31.2H, Mean Corpuscular Hemoglobin Concent 33.7, Red Cell Distribution Width 11.9, Platelet Count 380, Mean Platelet Volume 6.8, Neutrophils (%) (Auto) 78.2H, Lymphocytes (%) (Auto) 18.5L, Monocytes (%) (Auto) 3.2, Eosinophils (%) (Auto) 0.0, Basophils (%) (Auto) 0.1, Sodium Level 138, Potassium Level 4.4, Chloride Level 103, Carbon Dioxide Level 26, Anion Gap 9, Blood Urea Nitrogen 20H, Creatinine 0.9, Estimat Glomerular Filtration Rate > 60, Glucose Level 206H, Calcium Level 9.0, Phosphorus Level 4.6, Magnesium Level 2.4, Total Bilirubin 0.3, Aspartate Amino Transf (AST/SGOT) 41H, Alanine Aminotransferase (ALT/SGPT) 99H, Alkaline Phosphatase 29L, Total Protein 6.9, Albumin 2.8L, Globulin 4.1, Albumin/Globulin Ratio 0.7L Current Medications Medications (Trade) Dose Ordered Sig/Abeba Route PRN Reason Start Time Stop Time Status Last Admin Dose Admin Acetaminophen (Tylenol) 1,000 mg Q4H PRN ORAL For Pain 04/20/20 12:45 05/20/20 12:44 04/20/20 12:47 Albuterol Sulfate (Proventil MDI) 2 puff Q4H PRN INH Shortness of Breath 04/20/20 11:15 07/19/20 11:14 Azithromycin (Zithromax) 500 mg DAILY ORAL 04/21/20 09:00 04/28/20 08:59 04/25/20 08:13 Ceftriaxone Sodium 1 gm/ Dextrose 50 ml @ 100 mls/hr Q24H IVPB 04/20/20 18:00 04/27/20 17:59 04/24/20 17:07 Dexamethasone Sodium Phosphate (Decadron 4mg/ml vial) 6 mg Q24H IVP 04/19/20 22:00 04/28/20 23:59 04/24/20 21:27 Dextrose (Dextrose 50%) 25 ml Q30M PRN IV Hypoglycemia 04/19/20 21:00 07/18/20 20:59 Dextrose (Dextrose 50%) 50 ml Q30M PRN IV Hypoglycemia 04/19/20 21:00 07/18/20 20:59 Diphenhydramine HCl (Benadryl) 25 mg Q6H PRN ORAL Itching/Pruritis 04/19/20 21:00 05/19/20 20:59 Enoxaparin Sodium (Lovenox) 40 mg QHS SUBQ 04/19/20 22:00 3/29/21 21:59 04/24/20 21:26 Nitroglycerin (Ntg) 0.4 mg Q5M X 3 DOSES PRN SL Prn Chest Pain 04/19/20 21:00 05/19/20 20:59 Ondansetron HCl (Zofran) 4 mg Q6H PRN IVP Nausea & Vomiting 04/19/20 21:00 05/19/20 20:59 Assessment/Plan Assessment/Plan ASSESSMENT COVID 19 infection Acute hypoxic rep failure 2/2 to COVID infection Hypokalemia Hx of HTN PLAN OF CARE MS floor isolation Date of sx onset: few days prior to presentation to ED Positive test: 04/19 rapid COVID 19 + O2 3 L NC HFA s/p REM x 5 days ( 04/20- 04/24 ) Dex Day# #6 ( 04/19-) DVT PPX: Lovenox D dimer -0.7 Trend CRP 6.5-> 2.3 Abx per ID recs CXR 04/22 -> Mildly increased interstitial markings and subtle hazy densities, concerning for an evolving pneumonitis. No focal consolidation. Monitor volumes and renal function Fup with consultants recs FC dc plan per primary team, will need to continue isolation for total of 10 days from day of testing case discussed and evaluated by supervising physician Shira Chambers NP Apr 25, 2020 10:17 Avni Ac MD Apr 25, 2020 22:05
[2020-04-25 12:00] VITALS: BP 109/70
--- NOTE | 2020-04-25 13:27 | Surgery Progress Note ---
Surgery Progress Note Subjective Additional Comments improving pain improved no n/v lft's improving Objective Last 24 Hour Vital Signs Date Time Temp Pulse Resp B/P (MAP) Pulse Ox O2 Delivery O2 Flow Rate FiO2 04/25/20 12:00 98.0 69 20 109/70 (83) 96 04/25/20 09:00 Nasal Cannula 3.0 04/25/20 08:00 97.7 68 20 108/73 (85) 96 04/25/20 04:00 97.6 72 18 109/75 (86) 96 04/25/20 00:00 98.0 67 18 108/73 (85) 99 04/24/20 21:00 Nasal Cannula 3.0 04/24/20 20:00 97.5 66 18 108/75 (86) 94 04/24/20 16:08 98.2 62 18 111/82 (92) 93 I&O Intake and Output 04/24/20 04/25/20 19:00 07:00 Intake Total 750 ml 200 ml Balance 750 ml 200 ml Intake Oral 700 ml 200 ml IV Total 50 ml # Voids 3 2 Dressing: saturated Cardiovascular: RSR Respiratory: decreased breath sounds Abdomen: soft, non-tender, present bowel sounds Extremities: no tenderness, no cyanosis Laboratory Tests Test 04/25/20 05:00 White Blood Count 6.2 K/UL (4.8-10.8) Red Blood Count 4.10 M/UL (4.20-5.40) L Hemoglobin 12.8 G/DL (12.0-16.0) Hematocrit 38.0 % (37.0-47.0) Mean Corpuscular Volume 93 FL (80-99) Mean Corpuscular Hemoglobin 31.2 PG (27.0-31.0) H Mean Corpuscular Hemoglobin Concent 33.7 G/DL (32.0-36.0) Red Cell Distribution Width 11.9 % (11.6-14.8) Platelet Count 380 K/UL (150-450) Mean Platelet Volume 6.8 FL (6.5-10.1) Neutrophils (%) (Auto) 78.2 % (45.0-75.0) H Lymphocytes (%) (Auto) 18.5 % (20.0-45.0) L Monocytes (%) (Auto) 3.2 % (1.0-10.0) Eosinophils (%) (Auto) 0.0 % (0.0-3.0) Basophils (%) (Auto) 0.1 % (0.0-2.0) Sodium Level 138 MMOL/L (136-145) Potassium Level 4.4 MMOL/L (3.5-5.1) Chloride Level 103 MMOL/L (98-107) Carbon Dioxide Level 26 MMOL/L (21-32) Anion Gap 9 mmol/L (5-15) Blood Urea Nitrogen 20 mg/dL (7-18) H Creatinine 0.9 MG/DL (0.55-1.30) Estimat Glomerular Filtration Rate > 60 mL/min (>60) Glucose Level 206 MG/DL (74-106) H Calcium Level 9.0 MG/DL (8.5-10.1) Phosphorus Level 4.6 MG/DL (2.5-4.9) Magnesium Level 2.4 MG/DL (1.8-2.4) Total Bilirubin 0.3 MG/DL (0.2-1.0) Aspartate Amino Transf (AST/SGOT) 41 U/L (15-37) H Alanine Aminotransferase (ALT/SGPT) 99 U/L (12-78) H Alkaline Phosphatase 29 U/L (46-116) L Total Protein 6.9 G/DL (6.4-8.2) Albumin 2.8 G/DL (3.4-5.0) L Globulin 4.1 g/dL Albumin/Globulin Ratio 0.7 (1.0-2.7) L Plan Problems: (1) Respiratory distress Assessment & Plan: improved (2) Hypoxic (3) Abnormal LFTs Assessment & Plan: abd discomfort mild elevated lft's lip wnl no acute surgical intervention hold on US trend labs will follow with exam and recs. likely related to covid kub ordered (4) COVID-19 Assessment & Plan: ++ pulm tx o2 wean d dimer elevated arielnox Miguel Ángel Fitzgerald Apr 25, 2020 13:26
[2020-04-25 16:00] VITALS: BP 117/86
--- NOTE | 2020-04-25 16:04 | General Progress Note ---
Subjective Date patient seen: Apr 25, 2020 Allergies: Coded Allergies: No Known Allergies (Unverified , 04/19/20) Subjective No acute events overnight per nursing. Doing much better. Interpretor used. TItrated off of oxygen for first time this AM. DOing muc better. LFTs elevated. No abdominal pain, nausea or vomiting. Drugless Doctor used. No other complaints Review of systems: Constitutional: Denies: chills, diaphoresis, fever, malaise, weakness, + Fatigue HEENT: Denies: eye pain, blurred vision, double vision, ear pain, nose pain, throat pain, Cardiovascular: Denies: chest pain, edema, lightheadedness, palpitations Respiratory: Endorses Cough and SOB Gastrointestinal/Abdominal: Denies: abdominal pain, black stools, blood in stool, constipation, diarrhea, nausea, poor fluid intake vomiting, other Genitourinary: Denies: burning, discharge, frequency, Neurologic/Psychiatric: Denies: headache, numbness, paresthesia, new weakness, other Endocrine: Denies: excessive sweating, flushing, intolerance to cold, MSK: denies joint pains, swelling, stiffness Hematologic/Lymphatic: Denies: anemia, easy bleeding, easy bruising, Psych: no anxiety, depression, SI or HI Objective Last 24 Hour Vital Signs Date Time Temp Pulse Resp B/P (MAP) Pulse Ox O2 Delivery O2 Flow Rate FiO2 04/25/20 12:00 98.0 69 20 109/70 (83) 96 04/25/20 09:00 Nasal Cannula 3.0 04/25/20 08:00 97.7 68 20 108/73 (85) 96 04/25/20 04:00 97.6 72 18 109/75 (86) 96 04/25/20 00:00 98.0 67 18 108/73 (85) 99 04/24/20 21:00 Nasal Cannula 3.0 04/24/20 20:00 97.5 66 18 108/75 (86) 94 04/24/20 16:08 98.2 62 18 111/82 (92) 93 Intake and Output 04/24/20 04/25/20 19:00 07:00 Intake Total 750 ml 200 ml Balance 750 ml 200 ml Intake Oral 700 ml 200 ml IV Total 50 ml # Voids 3 2 Laboratory Tests 04/25/20 05:00: White Blood Count 6.2, Red Blood Count 4.10L, Hemoglobin 12.8, Hematocrit 38.0, Mean Corpuscular Volume 93, Mean Corpuscular Hemoglobin 31.2H, Mean Corpuscular Hemoglobin Concent 33.7, Red Cell Distribution Width 11.9, Platelet Count 380, Mean Platelet Volume 6.8, Neutrophils (%) (Auto) 78.2H, Lymphocytes (%) (Auto) 18.5L, Monocytes (%) (Auto) 3.2, Eosinophils (%) (Auto) 0.0, Basophils (%) (Auto) 0.1, Sodium Level 138, Potassium Level 4.4, Chloride Level 103, Carbon Dioxide Level 26, Anion Gap 9, Blood Urea Nitrogen 20H, Creatinine 0.9, Estimat Glomerular Filtration Rate > 60, Glucose Level 206H, Calcium Level 9.0, Phosphorus Level 4.6, Magnesium Level 2.4, Total Bilirubin 0.3, Aspartate Amino Transf (AST/SGOT) 41H, Alanine Aminotransferase (ALT/SGPT) 99H, Alkaline Phosphatase 29L, Total Protein 6.9, Albumin 2.8L, Globulin 4.1, Albumin/Globulin Ratio 0.7L Height (Feet): 5 Height (Inches): 2.00 Weight (Pounds): 135 Objective General: WDWN female in NAD, A&O x 4 HEENT: Normocephalic cephalic atraumatic, pupils equal round reactive to light and accommodation, nares patent and no symmetrical, no tonsillar exudates, mu cous membranes moist CV: Regular rate regular rhythm, no murmurs, rubs, or gallops Pulm: Lungs clear to auscultation bilaterally. No wheezes, rhonchi, or rales GI: Soft, nontender, nondistended, bowel sounds present Neuro: CN 2-12 intact bilaterally, no focal signs. Ext: No lower extremity edema bilaterally Skin: no rashes lesions or ulcers Msk: Joints symmetrical in upper extremity and lower extremity bilaterally, no joint swelling. Lymph: No lymphadenopathy in upper extremity and lower extremity Assessment/Plan Status: stable, unchanged Assessment/Plan: 69 yo F w/o relevant PMH admitted for Covid and Acute Hypoxic Resp Failure: Assessment/Plan #Acute Hypoxic Resp Failure 2/2 COVID #COVID PNA w/ associated High Inflammatory Markers #?Superimposed CAP -Appreciate Pulm, Dr. Ac. D/w -Consult ID, Dr. Mendoza -Decadron/MDI (04/20 - ) -s/p Remdesivir - Rocephin (04/20 - ) - Azithromycin (04/20 - ) - Abx per ID - Appreciate ID recommendations: [place] -Pandey Cx; pending -Trend Inflammatory Markers -Supportive measures/Pain control -Negative fluid balance best - wean off oxygen as tolerated - CXR reviewed: pneumonitis? -obtain room air and ambulatory sats. D/w nursing - > now on room air #Transaminitis ? medication s/e - CTM - no symptoms. #Hypokalemia/Electrolyte Derrangements -Replete prn FENPPX DVTPPX: - lovenox Fluids: PRN Diet: yes Lines: PIV PT/OT: pending Code status: Full Dispo: home when off oxygen Reason for Continued Hospitalization: hypoxic resp failure MIPS ([employer]-based Incentive Payment System) Applicable CPT: 10550, 58257 CHECK ALL THAT ARE MET: [] Measure #5 (CHF): All ages. Prescribe SALO/ARB upon discharge for patients with left ventricular systolic dysfunction. If not, the reason is clearly documented in the medical chart [] Measure #8 (CHF): All ages. Prescribe a beta ashly upon discharge for patients with left ventricular systolic dysfunction. If not, the reason is clearly documented in the medical chart. [] Measure #47: Advance care plan or surrogate decision maker documented in the medical record. [x] Measure #130 The provider has documented, updated, or reviewed the patients current medication list and has documented it in the patients note. [x] Measure #374 (All): Send report to referring provider. [] Measure #407(Sepsis due to MSSA bacteremia): Age 18+ Patient treated with a beta-lactam antibiotic (Nafcillin, Oxacillin or Cefazolin) as definitive therapy. MEDICAL COMPLEXITYHigh complexity medical decision making (need 2/3 categories)Problem - need 4 points [x]Acute/new problem with new plan for workup (4 points, 1 max) [] Acute/new problem without additional workup (3 points, 1 max) [x] Unstable chronic problem actively being managed (2 point each, 2 max) [x] Stable chronic problem actively being managed (1 point each, 2 max) [] Self-limited/transient process (constipation, muscle ache, etc) (1 point each, 2 max) Data - need 4 points [x] Reviewed labs/imaging studies (1 points, 2 max) [x] Independent review of imaging (EKG, xrays, etc) (2 points, 2 max) [x] Discussed case with consult/other MD/RN (2 points, 2 max) High Risk - qualify if have one of the following: [x] Severe exacerbation of acute problem, acute mental status change, IV narcotics, monitoring drug levels (vancomycin, INR, tacrolimus etc) I spent 38 minutes on this patient's case, and 22 mins was dedicated to counseling and/or care coordination. Discussed with pulm, ID, Rn Time of note may not reflect time of encounter Jose Miguel Yao D.O. Apr 25, 2020 16:03
[2020-04-25] MEDS: cefTRIAXone 1 GM in D5W 50 ML IVPB SCH (17:17)
[2020-04-25 20:00] VITALS: BP 118/78
[2020-04-25] MEDS: Enoxaparin 40mg Inj SUBQ SCH (20:17)
[2020-04-26] VITALS: BP 108/74
[2020-04-26 04:00] VITALS: BP 103/69
[2020-04-26 07:46] LABS: BASOPHILS % (AUTO) 0.8 % (0.0-2.0); EOSINOPHILS % (AUTO) 0.1 % (0.0-3.0); HEMOGLOBIN 12.7 G/DL (12.0-16.0); LYMPHOCYTES % (AUTO) 14.7 % (20.0-45.0); MEAN CORPUSCULAR VOLUME 92 FL (80-99); MONOCYTES % (AUTO) 3.7 % (1.0-10.0); NEUTROPHILS % (AUTO) 80.8 % (45.0-75.0); PLATELET COUNT 374 K/UL (150-450); RED BLOOD COUNT 4.13 M/UL (4.20-5.40); RED CELL DISTRIBUTION WIDTH 11.9 % (11.6-14.8); WHITE BLOOD COUNT 6.4 K/UL (4.8-10.8)
[2020-04-26 07:55] LABS: ALBUMIN 2.7 G/DL (3.4-5.0); ALBUMIN/GLOBULIN RATIO 0.7 (1.0-2.7); BILIRUBIN,TOTAL 0.4 MG/DL (0.2-1.0); CALCIUM 9.3 MG/DL (8.5-10.1); POTASSIUM 4.7 MMOL/L (3.5-5.1)
[2020-04-26 08:00] VITALS: BP 103/69
[2020-04-26] MEDS: Azithromycin 250mg tab ORAL SCH (08:42)
--- NOTE | 2020-04-26 09:56 | Pulmonology Progress Note ---
Subjective Allergies: Coded Allergies: No Known Allergies (Unverified , 04/19/20) Subjective afebrile, no leukocytosis no resp distress remains on 1L O2 via NC clinically improved Objective Last 24 Hour Vital Signs Date Time Temp Pulse Resp B/P (MAP) Pulse Ox O2 Delivery O2 Flow Rate FiO2 04/26/20 04:00 97.3 61 16 103/69 (80) 94 04/26/20 00:00 97.7 68 18 108/74 (85) 95 04/25/20 21:00 Nasal Cannula 3.0 04/25/20 20:00 97.5 72 18 118/78 (91) 94 04/25/20 16:00 96.7 67 19 117/86 (96) 95 04/25/20 12:00 98.0 69 20 109/70 (83) 96 Intake and Output 04/25/20 04/26/20 19:00 07:00 Intake Total 140 ml 240 ml Output Total 1200 ml Balance -1060 ml 240 ml Intake Oral 140 ml 240 ml Output Urine Total 1200 ml # Voids 3 3 Objective General Appearance: WD/WN, no apparent distress Lines, tubes and drains: peripheral HEENT: normocephalic, atraumatic, anicteric, mucous membranes moist, PERRL, O2 1 L via NC Neck: non-tender, supple Respiratory/Chest: lungs clear - with moderate air exchange , no respiratory distress, no accessory muscle use Cardiovascular/Chest: normal peripheral pulses, normal rate Abdomen: normal bowel sounds, non tender, soft Extremities: normal range of motion, no calf tenderness, normal capillary refill Skin Exam: warm/dry Neurologic: no motor/sensory deficits, alert, responsive Musculoskeletal: normal muscle bulk Laboratory Tests 04/26/20 04:30: White Blood Count 6.4, Red Blood Count 4.13L, Hemoglobin 12.7, Hematocrit 38.0, Mean Corpuscular Volume 92, Mean Corpuscular Hemoglobin 30.7, Mean Corpuscular Hemoglobin Concent 33.4, Red Cell Distribution Width 11.9, Platelet Count 374, Mean Platelet Volume 6.4L, Neutrophils (%) (Auto) 80.8H, Lymphocytes (%) (Auto) 14.7L, Monocytes (%) (Auto) 3.7, Eosinophils (%) (Auto) 0.1, Basophils (%) (Auto) 0.8, Sodium Level 137, Potassium Level 4.7, Chloride Level 103, Carbon Dioxide Level 26, Anion Gap 8, Blood Urea Nitrogen 20H, Creatinine 1.0, Estimat Glomerular Filtration Rate 55.3, Glucose Level 207H, Calcium Level 9.3, Total Bilirubin 0.4, Aspartate Amino Transf (AST/SGOT) 30, Alanine Aminotransferase (ALT/SGPT) 73, Alkaline Phosphatase 32L, Total Protein 6.7, Albumin 2.7L, Globulin 4.0, Albumin/Globulin Ratio 0.7L Current Medications Medications (Trade) Dose Ordered Sig/Abeba Route PRN Reason Start Time Stop Time Status Last Admin Dose Admin Acetaminophen (Tylenol) 1,000 mg Q4H PRN ORAL For Pain 04/20/20 12:45 05/20/20 12:44 04/20/20 12:47 Albuterol Sulfate (Proventil MDI) 2 puff Q4H PRN INH Shortness of Breath 04/20/20 11:15 07/19/20 11:14 Azithromycin (Zithromax) 500 mg DAILY ORAL 04/21/20 09:00 04/28/20 08:59 04/26/20 08:42 Ceftriaxone Sodium 1 gm/ Dextrose 50 ml @ 100 mls/hr Q24H IVPB 04/20/20 18:00 04/27/20 17:59 04/25/20 17:17 Dexamethasone Sodium Phosphate (Decadron 4mg/ml vial) 6 mg Q24H IVP 04/19/20 22:00 04/28/20 23:59 04/25/20 21:18 Dextrose (Dextrose 50%) 25 ml Q30M PRN IV Hypoglycemia 04/19/20 21:00 07/18/20 20:59 Dextrose (Dextrose 50%) 50 ml Q30M PRN IV Hypoglycemia 04/19/20 21:00 07/18/20 20:59 Diphenhydramine HCl (Benadryl) 25 mg Q6H PRN ORAL Itching/Pruritis 04/19/20 21:00 05/19/20 20:59 Enoxaparin Sodium (Lovenox) 40 mg QHS SUBQ 04/19/20 22:00 07/18/20 21:59 04/25/20 20:17 Nitroglycerin (Ntg) 0.4 mg Q5M X 3 DOSES PRN SL Prn Chest Pain 04/19/20 21:00 05/19/20 20:59 Ondansetron HCl (Zofran) 4 mg Q6H PRN IVP Nausea & Vomiting 04/19/20 21:00 05/19/20 20:59 Assessment/Plan Assessment/Plan ASSESSMENT COVID 19 infection Acute hypoxic rep failure 2/2 to COVID infection Hypokalemia Hx of HTN PLAN OF CARE MS floor isolation Date of sx onset: few days prior to presentation to ED Positive test: 04/19 rapid COVID 19 + O2 1 L NC -> remove O2 abd check sat on RA after ambulation in the room HFA s/p REM x 5 days ( 04/20- 04/24 ) Dex Day# #7 ( 04/19-) DVT PPX: Lovenox D dimer -0.7 Trend CRP 6.5-> 2.3 Abx per ID recs CXR 04/22 -> Mildly increased interstitial markings and subtle hazy densities, concerning for an evolving pneumonitis. No focal consolidation. Monitor volumes and renal function Fup with consultants recs FC dc plan per primary team, will need to continue isolation for total of 10 days from day of testing case discussed and evaluated by supervising physician Shira Chambers NP Apr 26, 2020 09:56
[2020-04-26 12:00] VITALS: BP 108/74
--- NOTE | 2020-04-26 14:38 | Infectious Diseases Prog Note ---
Assessment/Plan Assessment/Plan ASSESSMENT AND PLAN: 1.covid-19 infection, ? CAP, hypoxia - dexamethasone - s/p remdesivir - ceftriaxone and azithromycin - monitor hypoxia, labs and chest x-ray - seems clinically improved - stable ID standpoint 2. COVID isolation. 3. Hypertension. 4. Blood pressure treatment per primary care team. 5. Continue treatment per primary consultants. 6. No known allergies. 7. Social history negative. 8. Family history noncontributory. 9. MAR was noted. 10. Case discussed with RN. Subjective Constitutional: Reports: fatigue; Denies: fever HEENT: Denies: congestion Respiratory: Denies: shortness of breath Cardiovascular: Denies: chest pain Gastrointestinal/Abdominal: Denies: nausea, vomiting, diarrhea Genitourinary: Reports: other - no ponce Psychiatric: Denies: depression Skin: Denies: rash Hematologic: Denies: bleeding Musculoskeletal: Denies: pain Allergies: Coded Allergies: No Known Allergies (Unverified , 04/19/20) Objective Last 24 Hour Vital Signs Date Time Temp Pulse Resp B/P (MAP) Pulse Ox O2 Delivery O2 Flow Rate FiO2 04/26/20 09:00 Room Air 04/26/20 08:00 97.3 68 16 103/69 (80) 97 04/26/20 04:00 97.3 61 16 103/69 (80) 94 04/26/20 00:00 97.7 68 18 108/74 (85) 95 04/25/20 21:00 Nasal Cannula 3.0 04/25/20 20:00 97.5 72 18 118/78 (91) 94 04/25/20 16:00 96.7 67 19 117/86 (96) 95 Height (Feet): 5 Height (Inches): 2.00 Weight (Pounds): 135 General Appearance: no acute distress HEENT: normocephalic, atraumatic, anicteric, mucous membranes moist Respiratory/Chest: no respiratory distress, no accessory muscle use, crackles /rales, rhonchi - bilaterally Cardiovascular: normal rate, regular rhythm, no gallop/murmur, no JVD Abdomen: normal bowel sounds, soft, non tender, no organomegaly, non distended Genitourinary: other - no ponce Extremities: no cyanosis Skin: no rash 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 The lungs are otherwise clear without focal consolidation. Pleural space: Unremarkable. The costophrenic angles are sharp. No visible pneumothorax. Heart: Unremarkable. No cardiomegaly. Mediastinum: Unremarkable. Bones/joints: Unremarkable. IMPRESSION: Mildly increased interstitial markings and subtle hazy densities. This is concerning for an evolving pneumonitis. No focal consolidation. Microbiology Date/Time Source Procedure Growth Status 04/19/20 18:15 Blood Blood Culture - Final NO GROWTH AFTER 5 DAYS Complete 04/19/20 18:12 Nasopharynx SARS-CoV-2 RdRp Gene Assay - Final Complete Laboratory Tests Test 04/26/20 04:30 White Blood Count 6.4 K/UL (4.8-10.8) Red Blood Count 4.13 M/UL (4.20-5.40) L Hemoglobin 12.7 G/DL (12.0-16.0) Hematocrit 38.0 % (37.0-47.0) Mean Corpuscular Volume 92 FL (80-99) Mean Corpuscular Hemoglobin 30.7 PG (27.0-31.0) Mean Corpuscular Hemoglobin Concent 33.4 G/DL (32.0-36.0) Red Cell Distribution Width 11.9 % (11.6-14.8) Platelet Count 374 K/UL (150-450) Mean Platelet Volume 6.4 FL (6.5-10.1) L Neutrophils (%) (Auto) 80.8 % (45.0-75.0) H Lymphocytes (%) (Auto) 14.7 % (20.0-45.0) L Monocytes (%) (Auto) 3.7 % (1.0-10.0) Eosinophils (%) (Auto) 0.1 % (0.0-3.0) Basophils (%) (Auto) 0.8 % (0.0-2.0) Sodium Level 137 MMOL/L (136-145) Potassium Level 4.7 MMOL/L (3.5-5.1) Chloride Level 103 MMOL/L (98-107) Carbon Dioxide Level 26 MMOL/L (21-32) Anion Gap 8 mmol/L (5-15) Blood Urea Nitrogen 20 mg/dL (7-18) H Creatinine 1.0 MG/DL (0.55-1.30) Estimat Glomerular Filtration Rate 55.3 mL/min (>60) Glucose Level 207 MG/DL (74-106) H Calcium Level 9.3 MG/DL (8.5-10.1) Total Bilirubin 0.4 MG/DL (0.2-1.0) Aspartate Amino Transf (AST/SGOT) 30 U/L (15-37) Alanine Aminotransferase (ALT/SGPT) 73 U/L (12-78) Alkaline Phosphatase 32 U/L (46-116) L Total Protein 6.7 G/DL (6.4-8.2) Albumin 2.7 G/DL (3.4-5.0) L Globulin 4.0 g/dL Albumin/Globulin Ratio 0.7 (1.0-2.7) L Current Medications Medications (Trade) Dose Ordered Sig/Abeba Route PRN Reason Start Time Stop Time Status Last Admin Dose Admin Acetaminophen (Tylenol) 1,000 mg Q4H PRN ORAL For Pain 04/20/20 12:45 05/20/20 12:44 04/20/20 12:47 Albuterol Sulfate (Proventil MDI) 2 puff Q4H PRN INH Shortness of Breath 04/20/20 11:15 07/19/20 11:14 Azithromycin (Zithromax) 500 mg DAILY ORAL 04/21/20 09:00 04/28/20 08:59 04/26/20 08:42 Ceftriaxone Sodium 1 gm/ Dextrose 50 ml @ 100 mls/hr Q24H IVPB 04/20/20 18:00 04/27/20 17:59 04/25/20 17:17 Dexamethasone Sodium Phosphate (Decadron 4mg/ml vial) 6 mg Q24H IVP 04/19/20 22:00 04/28/20 23:59 04/25/20 21:18 Dextrose (Dextrose 50%) 25 ml Q30M PRN IV Hypoglycemia 04/19/20 21:00 07/18/20 20:59 Dextrose (Dextrose 50%) 50 ml Q30M PRN IV Hypoglycemia 04/19/20 21:00 07/18/20 20:59 Diphenhydramine HCl (Benadryl) 25 mg Q6H PRN ORAL Itching/Pruritis 04/19/20 21:00 05/19/20 20:59 Enoxaparin Sodium (Lovenox) 40 mg QHS SUBQ 04/19/20 22:00 07/18/20 21:59 04/25/20 20:17 Nitroglycerin (Ntg) 0.4 mg Q5M X 3 DOSES PRN SL Prn Chest Pain 04/19/20 21:00 05/19/20 20:59 Ondansetron HCl (Zofran) 4 mg Q6H PRN IVP Nausea & Vomiting 04/19/20 21:00 05/19/20 20:59 Joaquín Banuelos MD Apr 26, 2020 14:38
--- NOTE | 2020-04-26 15:05 | Surgery Progress Note ---
Surgery Progress Note Subjective Symptoms: improved, tolerating diet, passing flatus Objective Last 24 Hour Vital Signs Date Time Temp Pulse Resp B/P (MAP) Pulse Ox O2 Delivery O2 Flow Rate FiO2 04/26/20 09:00 Room Air 04/26/20 08:00 97.3 68 16 103/69 (80) 97 04/26/20 04:00 97.3 61 16 103/69 (80) 94 04/26/20 00:00 97.7 68 18 108/74 (85) 95 04/25/20 21:00 Nasal Cannula 3.0 04/25/20 20:00 97.5 72 18 118/78 (91) 94 04/25/20 16:00 96.7 67 19 117/86 (96) 95 I&O Intake and Output0 04/25/20 04/26/20 19:00 07:00 Intake Total 140 ml 240 ml Output Total 1200 ml Balance -1060 ml 240 ml Intake Oral 140 ml 240 ml Output Urine Total 1200 ml # Voids 3 3 Dressing: dry Cardiovascular: RSR Respiratory: clear, decreased breath sounds Abdomen: soft, non-tender, present bowel sounds Extremities: no edema, no tenderness, no cyanosis Laboratory Tests Test 04/26/20 04:30 White Blood Count 6.4 K/UL (4.8-10.8) Red Blood Count 4.13 M/UL (4.20-5.40) L Hemoglobin 12.7 G/DL (12.0-16.0) Hematocrit 38.0 % (37.0-47.0) Mean Corpuscular Volume 92 FL (80-99) Mean Corpuscular Hemoglobin 30.7 PG (27.0-31.0) Mean Corpuscular Hemoglobin Concent 33.4 G/DL (32.0-36.0) Red Cell Distribution Width 11.9 % (11.6-14.8) Platelet Count 374 K/UL (150-450) Mean Platelet Volume 6.4 FL (6.5-10.1) L Neutrophils (%) (Auto) 80.8 % (45.0-75.0) H Lymphocytes (%) (Auto) 14.7 % (20.0-45.0) L Monocytes (%) (Auto) 3.7 % (1.0-10.0) Eosinophils (%) (Auto) 0.1 % (0.0-3.0) Basophils (%) (Auto) 0.8 % (0.0-2.0) Sodium Level 137 MMOL/L (136-145) Potassium Level 4.7 MMOL/L (3.5-5.1) Chloride Level 103 MMOL/L (98-107) Carbon Dioxide Level 26 MMOL/L (21-32) Anion Gap 8 mmol/L (5-15) Blood Urea Nitrogen 20 mg/dL (7-18) H Creatinine 1.0 MG/DL (0.55-1.30) Estimat Glomerular Filtration Rate 55.3 mL/min (>60) Glucose Level 207 MG/DL (74-106) H Calcium Level 9.3 MG/DL (8.5-10.1) Total Bilirubin 0.4 MG/DL (0.2-1.0) Aspartate Amino Transf (AST/SGOT) 30 U/L (15-37) Alanine Aminotransferase (ALT/SGPT) 73 U/L (12-78) Alkaline Phosphatase 32 U/L (46-116) L Total Protein 6.7 G/DL (6.4-8.2) Albumin 2.7 G/DL (3.4-5.0) L Globulin 4.0 g/dL Albumin/Globulin Ratio 0.7 (1.0-2.7) L Plan Problems: (1) Respiratory distress Assessment & Plan: improved (2) Hypoxic (3) Abnormal LFTs Assessment & Plan: abd discomfort mild elevated lft's lip wnl no acute surgical intervention hold on US trend labs will follow with exam and recs. likely related to don valdez ordered diet as tolerated DAILY ESTIMATED NEEDS: Needs based on Pulmonary, 61kg 25-30 kcals/kg 9802-7923 total kcals 1-1.3 g protein/kg 61-79 g total protein 25-30 mL/kg 6884-1396 total fluid mLs NUTRITION DIAGNOSIS: Altered nutrition related lab values R/T clinical condition, on steroidal med as evidenced by elev BGs (200's), pt on Decadron. CURRENT DIET:REGULAR, pureed moist PO DIET RECOMMENDATIONS: CCHO MED diet while on Decadron/ texture as tolerated ADDITIONAL RECOMMENDATIONS: * Standing wt for accurate CBW * Monitor BGs closely while on Decadron -> monitor need for NISS -> Check A1C -> carb controlled diet as above * Pt currently on pureed texture, no h/o dysphagia -> advance texture as tolerated to maximize PO acceptance (4) COVID-19 Assessment & Plan: ++ pulm tx o2 wean d dimer elevated lovenox Miguel Ángel Fitzgerald Apr 26, 2020 15:05
[2020-04-26 16:00] VITALS: BP 105/71
--- NOTE | 2020-04-26 17:16 | General Progress Note ---
Subjective Date patient seen: Apr 26, 2020 ROS Limited/Unobtainable: No Constitutional: Denies: chills, fever HEENT: Denies: eye pain, double vision, ear pain Cardiovascular: Denies: chest pain, irregular heart rate Respiratory: Denies: orthopnea, wheezing Gastrointestinal/Abdominal: Denies: abdomen distended, abdominal pain Genitourinary: Denies: burning, discharge Neurologic/Psychiatric: Denies: numbness, paresthesia Endocrine: Denies: excessive sweating, flushing Hematologic/Lymphatic: Denies: anemia, easy bleeding Allergies: Coded Allergies: No Known Allergies (Unverified , 04/19/20) Subjective Patient doing well today, feels ready for discharge. Denies any new symptoms, SOB improved, Objective Last 24 Hour Vital Signs Date Time Temp Pulse Resp B/P (MAP) Pulse Ox O2 Delivery O2 Flow Rate FiO2 04/26/20 12:00 97.4 71 16 108/74 (85) 96 04/26/20 09:00 Room Air 04/26/20 08:00 97.3 68 16 103/69 (80) 97 04/26/20 04:00 97.3 61 16 103/69 (80) 94 04/26/20 00:00 97.7 68 18 108/74 (85) 95 04/25/20 21:00 Nasal Cannula 3.0 04/25/20 20:00 97.5 72 18 118/78 (91) 94 Intake and Output 04/25/20 04/26/20 19:00 07:00 Intake Total 140 ml 240 ml Output Total 1200 ml Balance -1060 ml 240 ml Intake Oral 140 ml 240 ml Output Urine Total 1200 ml # Voids 3 3 Laboratory Tests 04/26/20 04:30: White Blood Count 6.4, Red Blood Count 4.13L, Hemoglobin 12.7, Hematocrit 38.0, Mean Corpuscular Volume 92, Mean Corpuscular Hemoglobin 30.7, Mean Corpuscular Hemoglobin Concent 33.4, Red Cell Distribution Width 11.9, Platelet Count 374, Mean Platelet Volume 6.4L, Neutrophils (%) (Auto) 80.8H, Lymphocytes (%) (Auto) 14.7L, Monocytes (%) (Auto) 3.7, Eosinophils (%) (Auto) 0.1, Basophils (%) (Auto) 0.8, Sodium Level 137, Potassium Level 4.7, Chloride Level 103, Carbon Dioxide Level 26, Anion Gap 8, Blood Urea Nitrogen 20H, Creatinine 1.0, Estimat Glomerular Filtration Rate 55.3, Glucose Level 207H, Calcium Level 9.3, Total Bilirubin 0.4, Aspartate Amino Transf (AST/SGOT) 30, Alanine Aminotransferase (ALT/SGPT) 73, Alkaline Phosphatase 32L, Total Protein 6.7, Albumin 2.7L, Globulin 4.0, Albumin/Globulin Ratio 0.7L Height (Feet): 5 Height (Inches): 2.00 Weight (Pounds): 135 Objective General: WDWN female in NAD, A&O x 4 HEENT: Normocephalic cephalic atraumatic, pupils equal round reactive to light and accommodation, nares patent and no symmetrical, no tonsillar exudates, mucous membranes moist CV: Regular rate regular rhythm, no murmurs, rubs, or gallops Pulm: Lungs clear to auscultation bilaterally. No wheezes, rhonchi, or rales GI: Soft, nontender, nondistended, bowel sounds present Neuro: CN 2-12 intact bilaterally, no focal signs. Ext: No lower extremity edema bilaterally Skin: no rashes lesions or ulcers Msk: Joints symmetrical in upper extremity and lower extremity bilaterally, no joint swelling. Lymph: No lymphadenopathy in upper extremity and lower extremity Assessment/Plan Status: stable, unchanged Assessment/Plan: 69 yo F w/o relevant PMH admitted for Covid and Acute Hypoxic Resp Failure: Assessment/Plan #Acute Hypoxic Resp Failure 2/2 COVID - improved #COVID PNA w/ associated High Inflammatory Markers #?Superimposed CAP -Appreciate Pulm, Dr. Ac. D/w -Consult ID, Dr. Mendoza -Decadron/MDI (04/20 - ) -s/p Remdesivir - Rocephin (04/20 - ) - Azithromycin (04/20 - ) - Abx per ID - Appreciate ID recommendations: [place]es -Pandey Cx; pending -Trend Inflammatory Markers -Supportive measures/Pain control -Negative fluid balance best - wean off oxygen as tolerated - CXR reviewed: pneumonitis? -obtain room air and ambulatory sats. D/w nursing - > now on room air #Transaminitis ? medication s/e - CTM - no symptoms. #Hypokalemia/Electrolyte Derrangements -Replete prn FENPPX DVTPPX: - lovenox Fluids: PRN Diet: yes Lines: PIV PT/OT: pending Code status: Full Dispo: home today Reason for Continued Hospitalization: monitoring off of oxygen MIPS ([employer]it-based Incentive Payment System) Applicable CPT: 45254, 92718 CHECK ALL THAT ARE MET: [] Measure #5 (CHF): All ages. Prescribe SALO/ARB upon discharge for patients with left ventricular systolic dysfunction. If not, the reason is clearly documented in the medical chart [] Measure #8 (CHF): All ages. Prescribe a beta ashly upon discharge for patients with left ventricular systolic dysfunction. If not, the reason is clearly documented in the medical chart. [] Measure #47: Advance care plan or surrogate decision maker documented in the medical record. [x] Measure #130 The provider has documented, updated, or reviewed the patients current medication list and has documented it in the patients note. [x] Measure #374 (All): Send report to referring provider. [] Measure #407(Sepsis due to MSSA bacteremia): Age 18+ Patient treated with a beta-lactam antibiotic (Nafcillin, Oxacillin or Cefazolin) as definitive therapy. MEDICAL COMPLEXITYHigh complexity medical decision making (need 2/3 categories)Problem - need 4 points [x]Acute/new problem with new plan for workup (4 points, 1 max) [] Acute/new problem without additional workup (3 points, 1 max) [x] Unstable chronic problem actively being managed (2 point each, 2 max) [x] Stable chronic problem actively being managed (1 point each, 2 max) [] Self-limited/transient process (constipation, muscle ache, etc) (1 point each, 2 max) Data - need 4 points [x] Reviewed labs/imaging studies (1 points, 2 max) [x] Independent review of imaging (EKG, xrays, etc) (2 points, 2 max) [x] Discussed case with consult/other MD/RN (2 points, 2 max) High Risk - qualify if have one of the following: [x] Severe exacerbation of acute problem, acute mental status change, IV narcotics, monitoring drug levels (vancomycin, INR, tacrolimus etc) I spent 36 minutes on this patient's case, and 20 mins was dedicated to counseling and/or care coordination. Discussed with ROB pedroza, RN, case resolution specialist. Time of note may not reflect time of encounter Nate Cordova M.D. Apr 26, 2020 17:16
[2020-04-26] MEDS: cefTRIAXone 1 GM in D5W 50 ML IVPB SCH (17:25)
--- NOTE | 2020-04-27 16:08 | Cardiology Report ---
APPROVED REPORT EKG Measurement Heart [id number] <Conclusion> Normal sinus rhythm Normal ECG
--- NOTE | 2020-04-28 08:49 | Discharge Summary ---
Discharge Summary Discharge Summary _ DATE OF ADMISSION: 04/19/2020 DATE OF DISCHARGE:04/26/2020 DISCHARGED BY: REASON FOR ADMISSION: 69 years old female with past medical history of hypertension, recently diagnosed with Covid infection, presented to emergency department complaining of shortness of breath and fatigue. Upon evaluation pulse oximetry was 92% on 6 L of oxygen via nasal cannula. COVID-19 in emergency department was positive. Inflammatory markers revealed CRP 7.3, ferritin 835, LDH 423. Troponin was negative. K-3.2 . Chest x-ray revealed no acute cardiopulmonary pathology. In emergency department patient received fluids, started on steroids and a dmitted for further management. CONSULTANTS: ID specialist surgery Dr. Fitzgerald [facility]: Patient admitted to medical surgical floor to isolation room. Supplemental oxygen titrated to keep pulse oximetry above 92%. HFA provided. Patient received remdesivir for 5 days and steroids. DVT prophylaxis with Lovenox provided. CRP trended down to 2.3. Antibiotic provided as per ID recommendation , Volumes and renal function were closely monitored. Patient was followed-up with chest x-ray. Patient had mild elevation in LFT. Lipid panel was stable. Patient was able to tolerate diet. No nausea , vomiting or abdominal pain. Surgeon seen and evaluated patient. No need for any surgical intervention at this time, possibly due to COVID infection. LFT trending down and prior to discharge within normal limits : AST 30, ALT 73. Initial potassium was replaced and remained stable ; upon discharge potassium 4.7, Prior to discharge oxygen was removed , and patient was able to ambulate on room air without any shortness of breath . Patient was stable for discharge. Continue self-isolation for 10 days from the date of diagnsosis 04/29/20. FINAL DIAGNOSES: COVID-19 pneumonia Acute hypoxic respiratory failure secondary to Covid pneumonia Hypokalemia -resolved History of hypertension Abnormal LFT -resolved DISCHARGE MEDICATIONS: See Medication Reconciliation list. DISCHARGE INSTRUCTIONS: She was discharged home. Continue self-isolation for total of 10 days from the date of positive Covid in ER Shira Chambers NP Apr 28, 2020 08:49
== END 2020-04-26 18:20 | disposition home or self-care (01) | DRG 177 ==
LOC: EDBD 17:41 → EMR 18:00 → 4E 19:10 → EDBEDREQ 20:42
DX: U07.1 COVID-19 (principal); J96.01 Acute respiratory failure with hypoxia; J12.82 Pneumonia due to coronavirus disease 2019; E87.6 Hypokalemia; I10 Essential (primary) hypertension; R94.5 Abnormal results of liver function studies
CPT/HCPCS: 36415; 71045; 74018; 80053; 80061; 82248; 82728; 83615; 83690; 83735; 83880; 84100; 85007; 85025; 85379; 85610; 85730; 86140; 87040; 93005; 96360; 99291; J3490; J7030; J8499; U0002